=== PATIENT | male | born 1950 | race Caucasian/White ===

== ENCOUNTER → 2017-12-21 14:48 | Outpatient (CLI) | payer MEDICARE, SELFPAY ==
--- NOTE | 2017-12-21 14:58 | XR_ITS ---
XR chest 2V HISTORY: ITS.REASON: SOB ORDERING PHYSICIAN: Eduardo Edouard MD PATIENT AGE: 67 years COMPARISON: 05/11/2017 FINDINGS: Unremarkable cardiovascular structures. Chronic changes are present with COPD with chronic coarsening of the bronchovascular markings and blunting of the right CP angle. Prominent interstitial markings are present in the lung bases as before. No lobar consolidation or collapse. No acute bony anomalies. IMPRESSION: COPD with chronic changes with small right effusion unchanged
[2017-12-21 15:29] LABS: Basophils # 0.1 K/mm3 (0-0.2); Basophils % 0.9 % (0.1-2.0); Eosinophils # 0.1 K/mm3 (0.0-0.4); Eosinophils % 2.3 % (0.1-12.0); Hematocrit 28.5 % (42.0-52.0); Hemoglobin 9.1 g/dL (14.1-18.0); Lymphocytes # 1.2 K/mm3 (0.7-4.5); Lymphocytes % 19.4 K/mm3 (10-50); Mean Corpuscular Hemoglobin 28.7 pg (27.0-31.2); Mean Corpuscular Volume 89.8 fl (80-94); Mean Platelet Volume 7.6 fl (7.4-10.4); Monocytes # 0.4 K/mm3 (0.1-1.0); Neutrophils # 4.3 K/mm3 (1.8-7.8); Neutrophils % 70.4 % (37.0-80.0); Platelet Count 319 K/mm3 (142-424); Red Blood Count 3.18 M/mm3 (4.60-6.20); Red Cell Distribution Width 14.5 % (11.5-17.5); White Blood Count 6.2 K/mm3 (4.8-10.8)
[2017-12-21 16:36] LABS: Alanine Aminotransferase 19 U/L (12-78); Albumin Level 3.2 gm/dL (3.4-5.0); Alkaline Phosphatase 129 U/L (46-116); Anion Gap 14.2 mEq/L (5-15); Aspartate Amino Transferase 22 U/L (15-37); Bilirubin,Direct 0.1 mg/dL (0.0-0.2); Bilirubin,Total 0.3 mg/dL (0.2-1.0); Blood Urea Nitrogen 59 mg/dL (7-18); Carbon Dioxide 25 mmol/L (21.0-32.0); Chloride 111 mmol/L (98-107); Creatinine,Serum 3.15 mg/dL (0.70-1.30); Estimated Glomerular Filt Rate 20 ml/min (>60); Free T4 (Free Thyroxine) 1.22 ng/dl (0.76-1.46); GFR (African American) 24 ML/MIN (>60); Glucose 104 mg/dL (74-106); Potassium 5.2 mmoL/L (3.5-5.1); Sodium 145 mmol/L (136-145); Thyroid Stimulating Hormone 0.65 uIU/ml (0.358-3.740); Total Protein,Serum 6.5 gm/dL (6.4-8.2)
== END ==
PROVIDERS: PCP Family Medicine; Visit Provider Internal Medicine
DX: Z01.810 Encounter for preprocedural cardiovascular examination (principal); R06.02 Shortness of breath; R94.31 Abnormal electrocardiogram [ECG] [EKG]; J44.9 Chronic obstructive pulmonary disease, unspecified; R53.83 Other fatigue; N18.4 Chronic kidney disease, stage 4 (severe); E78.4 Other hyperlipidemia
CPT/HCPCS: 36415; 71046; 80048; 80076; 84439; 84443; 85025

== ENCOUNTER → 2018-01-04 06:16 | Outpatient (CLI) | payer MEDICARE, SELFPAY ==
--- NOTE | 2018-01-04 06:21 | CA_ITS ---
PROCEDURE: 2-D M-mode and color Doppler study INDICATIONS FOR THE TEST: Chest pain COPD Heart Murmur Tobacco SmokingX Palpitations Fatigue Syncope Edema HypertensionXDiabetes MellitusX Rheumatic Fever SOBXXDOEXObesity HyperlipidemiaX Family History HD Additional History ABN EKG,PRE-OP PATIENT INFORMATION HEIGHT: 70 WEIGHT:181 GENDER: Male B/P:156/73 2-D/M-MODE INTERPRETATION: 2-D MEASUREMENTS OBSERVED VALUES IN CMS Right Ventricular Dimension (RVDd) 2.4 Interventricular Septum (Thickness)(IVsd) 1.8 Left Ventricular Internal Dimensions(LVIDd) 4.2 Left Ventricular Posterior Wall (Thickness)(LVPWd) 1.3 Aortic Root 3.5 Aortic Cusp Separation 2.1 Left Atrial Dimensions (LAD) 3.4 2D 1. Left atrium is mildly enlarged, left ventricle is normal size, mild concentric left ventricular hypertrophy, visually estimated ejection fraction 55% with no obvious regional wall motion abnormality. 2. The right atrium and right ventricle are normal size and contractility. 3. The aortic valve is minimally thickened and fibrosed. 4. The mitral and tricuspid valve leaflets are minimally thickened. 5. The pulmonic valve is poorly visualized. 6. No significant pericardial effusion noted. DOPPLER INTERROGATION: Doppler interrogation of the aortic, mitral and tricuspid valvular presence of mild mitral and tricuspid regurgitation, tricuspid and jet velocity insufficient for acquisition of the right ventricular systolic pressure, grade 1 diastolic dysfunction seen with tissue Doppler evidence of raised left atrial pressure. CONCLUSION: 1. Mildly enlarged left atrium, normal left ventricular size, mild concentric left ventricular hypertrophy, visually estimated ejection fraction 55% with no obvious regional wall motion abnormality, grade 1 diastolic dysfunction seen with tissue Doppler evidence of raised left atrial pressure. 2. Mild mitral and tricuspid regurgitation. 3. No significant pericardial effusion noted.
--- NOTE | 2018-01-04 06:21 | US_ITS ---
US abd. aorta screening HISTORY: Screening for aneurysm ITS.REASON: abd pain ORDERING PHYSICIAN: Eduardo Edouard MD PATIENT AGE: 67 years FINDINGS: The aorta measures 1.9 x 1.7 cm at the level of the site for 1.9 x 1.3 cm 2 segments below the xiphoid and 1.7 x 1.6 cm at the level the umbilicus. Proximal common iliacs are unremarkable. IMPRESSION: No evidence of abdominal aortic aneurysm
--- NOTE | 2018-01-04 06:21 | NM_ITS ---
History and Indications: Diabetes, tobacco use, family history, chest pain, shortness of breath and fatigue Procedure: Patient received a 0.4 mg of Lexiscan, resting heart rate was 64 bpm resting blood pressure 204/100, with Lexiscan maximum heart rate achieved was 69 bpm which is less than 85% of the maximum predicted heart rate and a blood pressure was 134/61. With Lexiscan no symptoms recorded. Electrocardiogram: Resting electrocardiogram showed sinus rhythm nonspecific ST-T changes, with Lexiscan there is less than 1.[address] segment depression from the baseline EKG. The EKG portion of the Lexiscan Myoview is nondiagnostic. Cardiac stress and resting SPECT images: Cardiac stress and rest SPECT images were obtained using technetium 99 Myoview 30.8 mCi at stress and 10.9 mCi at rest, gated SPECT further analysis of segmental wall motion and calculation of the ejection fraction also done. Cardiac stress and rest SPECT images show a fixed defect in the wall consistent with area of myocardial scarring, no significant luis miguel-infarct ischemia seen, computer derived ejection fraction mild inferior and posterobasal wall hypokinesis, right ventricle is normal size and contractility. Conclusion: 1. The EKG portion of the Lexiscan Myoview is nondiagnostic. 2. Scintigraphic evidence of prior myocardial scarring involving the inferior and posterobasal wall without significant luis miguel-infarct ischemia, computer derived ejection is 42 %f percent with segmental wall motion abnormality described above, right ventricle is normal size and contractility. 3. Abnormal Lexiscan Myoview study
--- NOTE | 2018-01-04 10:33 | HMH.ITSHM ---
lisinopril clopidogrel amlodipine atorvastatin levothyroxine pantoprazole
== END ==
PROVIDERS: Family Provider Family Medicine; PCP Family Medicine; Visit Provider Internal Medicine
DX: R06.02 Shortness of breath (principal); R94.31 Abnormal electrocardiogram [ECG] [EKG]
CPT/HCPCS: 76705; 78452; 93017; 93306; A9502; J2785

== ENCOUNTER → 2018-02-06 10:25 | Outpatient (CLI) | payer MEDICARE, SELFPAY ==
[2018-02-06 10:43] LABS: Basophils # 0.1 K/mm3 (0-0.2); Basophils % 1.1 % (0.1-2.0); Eosinophils # 0.4 K/mm3 (0.0-0.4); Eosinophils % 5.8 % (0.1-12.0); Hematocrit 27.8 % (42.0-52.0); Hemoglobin 8.4 g/dL (14.1-18.0); Lymphocytes # 1.3 K/mm3 (0.7-4.5); Lymphocytes % 17.7 K/mm3 (10-50); Mean Corpuscular HGB Conc 30.3 g/dL (31.8-35.4); Mean Corpuscular Hemoglobin 27.4 pg (27.0-31.2); Mean Corpuscular Volume 90.5 fl (80-94); Mean Platelet Volume 8.4 fl (7.4-10.4); Monocytes # 0.5 K/mm3 (0.1-1.0); Monocytes % 6.2 % (1.7-9.3); Neutrophils # 5.1 K/mm3 (1.8-7.8); Neutrophils % 69.2 % (37.0-80.0); Platelet Count 379 K/mm3 (142-424); Red Blood Count 3.07 M/mm3 (4.60-6.20); Red Cell Distribution Width 14.6 % (11.5-17.5); White Blood Count 7.3 K/mm3 (4.8-10.8)
[2018-02-06 11:27] LABS: Anion Gap 16.5 mEq/L (5-15); Blood Urea Nitrogen 74 mg/dL (7-18); Calcium 8.8 mg/dL (8.5-10.1); Carbon Dioxide 24 mmol/L (21.0-32.0); Chloride 112 mmol/L (98-107); Estimated Glomerular Filt Rate 17 ml/min (>60); GFR (African American) 21 ML/MIN (>60); Glucose 78 mg/dL (74-106); Sodium 146 mmol/L (136-145)
[2018-02-06 11:29] LABS: Potassium 6.5 mmoL/L (3.5-5.1)
== END ==
PROVIDERS: Visit Provider Internal Medicine
DX: I25.10 Atherosclerotic heart disease of native coronary artery without angina pectoris (principal); I65.23 Occlusion and stenosis of bilateral carotid arteries; N18.4 Chronic kidney disease, stage 4 (severe); E78.5 Hyperlipidemia, unspecified; E11.9 Type 2 diabetes mellitus without complications
CPT/HCPCS: 36415; 80048; 85025

== ENCOUNTER → 2018-02-09 08:17 | Outpatient (CLI) | payer MEDICARE, SELFPAY ==
[2018-02-09 09:02] LABS: Basophils # 0.1 K/mm3 (0-0.2); Basophils % 1.1 % (0.1-2.0); Eosinophils # 0.5 K/mm3 (0.0-0.4); Eosinophils % 7.6 % (0.1-12.0); Hematocrit 27.4 % (42.0-52.0); Hemoglobin 8.6 g/dL (14.1-18.0); Lymphocytes # 1.2 K/mm3 (0.7-4.5); Lymphocytes % 19.4 K/mm3 (10-50); Mean Corpuscular HGB Conc 31.3 g/dL (31.8-35.4); Mean Corpuscular Hemoglobin 28.3 pg (27.0-31.2); Mean Corpuscular Volume 90.4 fl (80-94); Mean Platelet Volume 7.8 fl (7.4-10.4); Monocytes # 0.4 K/mm3 (0.1-1.0); Monocytes % 6.4 % (1.7-9.3); Neutrophils # 4.2 K/mm3 (1.8-7.8); Neutrophils % 65.4 % (37.0-80.0); Platelet Count 364 K/mm3 (142-424); Red Blood Count 3.03 M/mm3 (4.60-6.20); Red Cell Distribution Width 14.5 % (11.5-17.5); White Blood Count 6.4 K/mm3 (4.8-10.8)
[2018-02-09 10:13] LABS: Blood Urea Nitrogen 65 mg/dL (7-18); Calcium 8.6 mg/dL (8.5-10.1); Carbon Dioxide 25 mmol/L (21.0-32.0); Chloride 113 mmol/L (98-107); Estimated Glomerular Filt Rate 16 ml/min (>60); GFR (African American) 19 ML/MIN (>60); Glucose 76 mg/dL (74-106); Sodium 149 mmol/L (136-145)
[2018-02-09 10:16] LABS: Creatinine,Serum 3.86 mg/dL (0.70-1.30)
== END ==
PROVIDERS: Visit Provider Internal Medicine
DX: I25.10 Atherosclerotic heart disease of native coronary artery without angina pectoris (principal); I65.23 Occlusion and stenosis of bilateral carotid arteries; N18.4 Chronic kidney disease, stage 4 (severe)
CPT/HCPCS: 36415; 80048; 85025

== ENCOUNTER → 2018-02-23 09:19 | Outpatient (CLI) | payer MEDICARE, SELFPAY ==
[2018-02-23 09:46] LABS: Basophils # 0.1 K/mm3 (0-0.2); Basophils % 0.5 % (0.1-2.0); Eosinophils # 0.2 K/mm3 (0.0-0.4); Hematocrit 25.5 % (42.0-52.0); Lymphocytes % 9.4 K/mm3 (10-50); Mean Corpuscular HGB Conc 31.1 g/dL (31.8-35.4); Mean Corpuscular Hemoglobin 27.9 pg (27.0-31.2); Mean Corpuscular Volume 89.9 fl (80-94); Monocytes # 0.5 K/mm3 (0.1-1.0); Monocytes % 4.9 % (1.7-9.3); Neutrophils # 8.7 K/mm3 (1.8-7.8); Neutrophils % 83.3 % (37.0-80.0); Platelet Count 361 K/mm3 (142-424); Red Blood Count 2.84 M/mm3 (4.60-6.20); Red Cell Distribution Width 14.3 % (11.5-17.5); White Blood Count 10.5 K/mm3 (4.8-10.8)
[2018-02-23 09:54] LABS: Hemoglobin 7.9 g/dL (14.1-18.0)
[2018-02-23 10:32] LABS: Anion Gap 14.7 mEq/L (5-15); Blood Urea Nitrogen 61 mg/dL (7-18); Calcium 8.1 mg/dL (8.5-10.1); Carbon Dioxide 23 mmol/L (21.0-32.0); Chloride 110 mmol/L (98-107); Estimated Glomerular Filt Rate 18 ml/min (>60); GFR (African American) 22 ML/MIN (>60); Glucose 121 mg/dL (74-106); Potassium 4.7 mmoL/L (3.5-5.1); Sodium 143 mmol/L (136-145)
== END ==
PROVIDERS: Visit Provider Physician Assistant
DX: R53.83 Other fatigue (principal); N18.4 Chronic kidney disease, stage 4 (severe)
CPT/HCPCS: 36415; 80048; 85025

== ENCOUNTER → 2018-02-26 13:19 | Outpatient (CLI) | payer MEDICARE, SELFPAY ==
[2018-02-26 13:43] VITALS: BMI 27.3
[2018-02-26 14:19] LABS: Hematocrit 25.1 % (42.0-52.0); Hemoglobin 7.7 g/dL (14.1-18.0)
== END ==
PROVIDERS: Family Provider Family Medicine; PCP Family Medicine; Visit Provider Family Medicine
DX: D64.9 Anemia, unspecified (principal)
CPT/HCPCS: 36415; 85014; 85018; 86850

== ENCOUNTER 2018-02-27 09:30 | Outpatient (CLI) | payer MEDICARE, SELFPAY ==
[2018-02-27] VITALS (20 sets, daily range): BP systolic 144–185; BP diastolic 68–85; PULSE 66–76; RESP 18–20; TEMP 36.3–36.9; O2SAT 95–98; BMI 24.3
[2018-02-27 15:34] LABS: Hematocrit 30.7 % (42.0-52.0); Hemoglobin 9.9 g/dL (14.1-18.0)
== END 2018-02-27 15:30 | disposition home or self-care (01) ==
LOC: INF 09:43
PROVIDERS: Family Provider Family Medicine; PCP Family Medicine; Visit Provider Family Medicine
DX: D64.9 Anemia, unspecified (principal)
CPT/HCPCS: 36430; 85014; 85018; P9016

== ENCOUNTER → 2018-03-09 09:58 | Outpatient (CLI) | payer MEDICARE, SELFPAY ==
[2018-03-09 11:04] LABS: Anion Gap 14.3 mEq/L (5-15); Blood Urea Nitrogen 57 mg/dL (7-18); Calcium 8.4 mg/dL (8.5-10.1); Carbon Dioxide 23 mmol/L (21.0-32.0); Chloride 113 mmol/L (98-107); Creatinine,Serum 3.16 mg/dL (0.70-1.30); Estimated Glomerular Filt Rate 20 ml/min (>60); GFR (African American) 24 ML/MIN (>60); Glucose 126 mg/dL (74-106); Potassium 5.3 mmoL/L (3.5-5.1); Sodium 145 mmol/L (136-145)
== END ==
PROVIDERS: Family Provider Family Medicine; PCP Family Medicine; Visit Provider Internal Medicine Cardiovascular Disease
DX: N18.4 Chronic kidney disease, stage 4 (severe) (principal); E78.4 Other hyperlipidemia; E11.9 Type 2 diabetes mellitus without complications
CPT/HCPCS: 36415; 80048

== ENCOUNTER → 2018-05-24 09:31 | Outpatient (CLI) | payer MEDICARE, SELFPAY ==
[2018-05-24 09:37] LABS: Microscopic, Urine URINE MICROSCOPIC (MICROSCOPIC)
[2018-05-24 10:01] LABS: Basophils # 0.1 K/mm3 (0-0.2); Basophils % 1.1 % (0.1-2.0); Eosinophils # 0.3 K/mm3 (0.0-0.4); Eosinophils % 4.9 % (0.1-12.0); Hematocrit 29.5 % (42.0-52.0); Hemoglobin 9.3 g/dL (14.1-18.0); Lymphocytes # 1.4 K/mm3 (0.7-4.5); Mean Corpuscular HGB Conc 31.5 g/dL (31.8-35.4); Mean Corpuscular Hemoglobin 28.4 pg (27.0-31.2); Mean Corpuscular Volume 90.2 fl (80-94); Mean Platelet Volume 7.6 fl (7.4-10.4); Monocytes # 0.5 K/mm3 (0.1-1.0); Monocytes % 7.6 % (1.7-9.3); Neutrophils % 64.3 % (37.0-80.0); Platelet Count 303 K/mm3 (142-424); Red Blood Count 3.27 M/mm3 (4.60-6.20); Red Cell Distribution Width 14.9 % (11.5-17.5); White Blood Count 6.2 K/mm3 (4.8-10.8)
[2018-05-24 12:02] LABS: Albumin Level 3.4 gm/dL (3.4-5.0); Anion Gap 14.2 mEq/L (5-15); Blood Urea Nitrogen 55 mg/dL (7-18); Calcium 8.6 mg/dL (8.5-10.1); Carbon Dioxide 24 mmol/L (21.0-32.0); Chloride 111 mmol/L (98-107); Creatinine,Serum 3.07 mg/dL (0.70-1.30); Estimated Glomerular Filt Rate 20 ml/min (>60); GFR (African American) 24 ML/MIN (>60); Glucose 96 mg/dL (74-106); Phosphorous 4.9 mg/dL (2.4-4.9); Potassium 5.2 mmoL/L (3.5-5.1); Sodium 144 mmol/L (136-145)
[2018-05-24 12:25] LABS: Appearance,Urine CLEAR (Clear); Bilirubin,Urine Negative (Negative); Blood, Urine Negative (Negative); Color,Urine YELLOW (Yellow); Glucose,Urine (UA) Negative (Negative); Ketones,Urine Negative (Negative); Leukocyte Esterase,Urine Negative (Negative); Nitrate,Urine Negative (Negative); PH,Urine 5.5 (5.0-8.5); Protein,Urine 3+ (Negative); Specific Gravity, Urine >= 1.030 (1.005-1.030); Urobilinogen,Urine 0.2 EU/dl (0.2)
[2018-05-24 12:39] LABS: Bacteria,Urine 1+ /lpf; WBC,Urine Occasional #/hpf (0-3)
[2018-05-24 12:53] LABS: Creatinine,Urine Random 139 mg/dL (20-320)
[2018-05-24 13:37] LABS: Total Protein,Urine Random 278.7 mg/dL (0.0-11.9)
== END ==
PROVIDERS: PCP Family Medicine; Visit Provider Hospitalist
DX: N18.9 Chronic kidney disease, unspecified (principal)
CPT/HCPCS: 36415; 80069; 81001; 82570; 84155; 85025

== ENCOUNTER → 2018-06-14 07:57 | Outpatient (CLI) | payer MEDICARE, SELFPAY ==
--- NOTE | 2018-06-14 08:04 | AS_ITS ---
Renal Arterial Duplex Indications: 405.91 Unspecified renovascular hypertension. IMPRESSIONS 1. The right renal artery appears normal. 2. The left renal artery appears normal. 3. Mildly elevated velocities noted at the left renal artery proximal and origin portions due to a tortuous vessel. Complete renal arterial duplex. Duplex scan and Doppler flow study including spectral analysis, color and ulrich scale imaging. Height: Height: 177.8cm. Height: 70in. Weight: Weight: 77.1kg. Weight: 169.6lb. Body mass index: BMI: 24.4kg/m^2. Body surface area: BSA: 1.96m^2. Location: Vascular laboratory. Patient status: Outpatient. Tables: Arterial flow: + +-------+--------+ Location V sys V ed + +-------+--------+ Right renal - proximal 120cm/s 20.1cm/s + +-------+--------+ Right renal - mid 115cm/s 26.2cm/s + +-------+--------+ Right renal - distal 218cm/s 25.7cm/s + +-------+--------+ Left renal - proximal 205cm/s 31cm/s + +-------+--------+ Left renal - mid 105cm/s 21.2cm/s + +-------+--------+ Left renal - distal 100cm/s 20.1cm/s + +-------+--------+ Right renal - Origin 109cm/s 18cm/s + +-------+--------+ Left renal - Origin 167cm/s 30cm/s + +-------+--------+ Aorta 108cm/s -------- + +-------+--------+ Artery mapping: + +--------+-------+ + Location Diameter Patency Observations + +--------+-------+ + Abdominal aorta - mid 1.84mm Patent Calcification + +--------+-------+ + Renal anatomy: + +-----+-----+ Left Right + +-----+-----+ Long axis 8.4cm 8.5cm + +-----+-----+ Short axis 5.7cm 5.5cm + +-----+-----+ Velocity ratios: + +-----+ V sys + +-----+ Right renal/aortic 2 + +-----+ Left renal/aortic 1.9 + +-----+ (Report amended ) Electronically signed by: Julius He [id number]
--- NOTE | 2018-06-14 08:30 | US_ITS ---
US kidney retroperitoneal comp HISTORY: Chronic renal disease ITS.REASON: CKD ORDERING PHYSICIAN: Byron Angulo PATIENT AGE: 68 years Comparison: None FINDINGS: The right kidney is 9.5 x 5.5 x 6.5 cm. No hydronephrosis or renal mass. Cortex is well-preserved. The left kidney is 9 point by 6.2 x 5.6 cm no hydronephrosis. Renal cortex is preserved. IMPRESSION: Negative bilateral renal ultrasound
== END ==
PROVIDERS: Family Provider Family Medicine; PCP Family Medicine
DX: N18.4 Chronic kidney disease, stage 4 (severe) (principal)
CPT/HCPCS: 76770; 93976

== ENCOUNTER → 2018-06-22 11:30 | Outpatient (CLI) | payer MEDICARE, SELFPAY ==
[2018-06-22 13:14] LABS: Creatinine,Urine Random 67 mg/dL (20-320); Total Protein,Urine Random 225.5 mg/dL (0.0-11.9)
[2018-06-22 14:01] LABS: Albumin Level 3.7 gm/dL (3.4-5.0); Blood Urea Nitrogen 50 mg/dL (7-18); Calcium 8.6 mg/dL (8.5-10.1); Carbon Dioxide 24 mmol/L (21.0-32.0); Chloride 108 mmol/L (98-107); Creatinine,Serum 3.02 mg/dL (0.70-1.30); Estimated Glomerular Filt Rate 21 ml/min (>60); Ferritin 55 ng/mL (8-388); GFR (African American) 25 ML/MIN (>60); Glucose 105 mg/dL (74-106); Phosphorous 4.4 mg/dL (2.4-4.9); Sodium 143 mmol/L (136-145)
[2018-06-22 14:38] LABS: Basophils # 0.1 K/mm3 (0-0.2); Basophils % 1.1 % (0.1-2.0); Eosinophils # 0.2 K/mm3 (0.0-0.4); Eosinophils % 3.8 % (0.1-12.0); Hematocrit 26.3 % (42.0-52.0); Lymphocytes # 1.1 K/mm3 (0.7-4.5); Lymphocytes % 16.9 K/mm3 (10-50); Mean Corpuscular HGB Conc 34.3 g/dL (31.8-35.4); Mean Corpuscular Hemoglobin 30.6 pg (27.0-31.2); Mean Platelet Volume 7.5 fl (7.4-10.4); Monocytes # 0.3 K/mm3 (0.1-1.0); Monocytes % 5.1 % (1.7-9.3); Neutrophils # 4.7 K/mm3 (1.8-7.8); Platelet Count 352 K/mm3 (142-424); Red Blood Count 2.96 M/mm3 (4.60-6.20); White Blood Count 6.4 K/mm3 (4.8-10.8)
[2018-06-23 09:15] LABS: Iron 65 ug/dL (38-169); UIBC 247 ug/dL (111-343)
[2018-06-24 09:27] LABS: Iron Saturation 21 % (15-55)
[2018-06-24 09:28] LABS: Parathyroid Hormone Intact 165 pg/mL (15-65); Vitamin D 25 Hydroxy 24.4 ng/mL (30.0-100.0)
[2018-06-25 15:19] LABS: Anti-Centromere B Antibodies <0.2 AI (0.0-0.9); Anti-Jo-1 <0.2 AI (0.0-0.9); Anti-Smith Antibody 0.3 AI (0.0-0.9); Antichromatin Antibodies <0.2 AI (0.0-0.9); Antiscleroderma-70 Antibodies 0.5 AI (0.0-0.9); Cytoplasmic (C-ANCA) <1:20 titer (Neg:<1:20); Immunoglobulin A, Qn 71 mg/dL (61-437); Immunoglobulin G, Qn 1032 mg/dL (700-1600); Immunoglobulin M, Qn 174 mg/dL (20-172); RNP Antibodies <0.2 AI (0.0-0.9); Sjogren's Anti-SS-A <0.2 AI (0.0-0.9); Sjogren's Anti-SS-B <0.2 AI (0.0-0.9)
[2018-06-26 06:30] LABS: Anti-DNA (DS) Ab Qn 1 IU/mL (0-9); Myeloperoxidase Antibody <9.0 U/mL (0.0-9.0); Perinuclear (P-ANCA) <1:20 titer (Neg:<1:20)
[2018-06-27 14:39] LABS: Antiproteinase 3 (PR-3) Abs <3.5 U/mL (0.0-3.5)
== END ==
PROVIDERS: PCP Family Medicine
DX: N18.4 Chronic kidney disease, stage 4 (severe) (principal); D63.8 Anemia in other chronic diseases classified elsewhere
CPT/HCPCS: 36415; 80069; 82570; 82652; 82728; 82784; 83520; 83540; 83550; 83970; 84155; 85025; 86225; 86235; 86256; 86334; 86335

== ENCOUNTER → 2018-07-26 13:11 | Outpatient (CLI) | payer MEDICARE, SELFPAY ==
[2018-07-27 15:19] LABS: Free Lambda Lt Chains 44.6 mg/L (5.7-26.3)
== END ==
PROVIDERS: Visit Provider Internal Medicine Medical Oncology
DX: R76.8 Other specified abnormal immunological findings in serum (principal)
CPT/HCPCS: 36415; 83883

== ENCOUNTER → 2018-09-28 10:02 | Outpatient (CLI) | payer MEDICARE, SELFPAY ==
[2018-09-28 11:05] LABS: Anion Gap 20.1 mEq/L (5-15); Blood Urea Nitrogen 55 mg/dL (7-18); Calcium 8.5 mg/dL (8.5-10.1); Carbon Dioxide 18 mmol/L (21.0-32.0); Chloride 112 mmol/L (98-107); Estimated Glomerular Filt Rate 17 ml/min (>60); GFR (African American) 20 ML/MIN (>60); Glucose 134 mg/dL (74-106); Potassium 5.1 mmoL/L (3.5-5.1); Sodium 145 mmol/L (136-145)
[2018-09-28 11:12] LABS: Creatinine,Serum 3.62 mg/dL (0.70-1.30)
== END ==
PROVIDERS: Visit Provider Internal Medicine Cardiovascular Disease
DX: I45.10 Unspecified right bundle-branch block; D64.9 Anemia, unspecified; E03.9 Hypothyroidism, unspecified; E11.9 Type 2 diabetes mellitus without complications; E78.5 Hyperlipidemia, unspecified; G45.9 Transient cerebral ischemic attack, unspecified; I25.10 Atherosclerotic heart disease of native coronary artery without angina pectoris; J44.9 Chronic obstructive pulmonary disease, unspecified; K21.9 Gastro-esophageal reflux disease without esophagitis; N18.4 Chronic kidney disease, stage 4 (severe); R06.02 Shortness of breath; R53.83 Other fatigue; Z79.4 Long term (current) use of insulin; F17.210 Nicotine dependence, cigarettes, uncomplicated
CPT/HCPCS: 36415; 80048

== ENCOUNTER → 2018-10-05 11:56 | Outpatient (CLI) | payer MEDICARE, SELFPAY ==
[2018-10-05 12:16] LABS: Basophils # 0.1 K/mm3 (0-0.2); Basophils % 1.3 % (0.1-2.0); Eosinophils # 0.2 K/mm3 (0.0-0.4); Eosinophils % 3.8 % (0.1-12.0); Lymphocytes # 0.8 K/mm3 (0.7-4.5); Lymphocytes % 13.2 % (10-50); Mean Corpuscular HGB Conc 30.9 g/dL (31.8-35.4); Mean Corpuscular Hemoglobin 28.8 pg (27.0-31.2); Mean Corpuscular Volume 93.2 fl (80-94); Mean Platelet Volume 8.2 fl (7.4-10.4); Monocytes # 0.3 K/mm3 (0.1-1.0); Monocytes % 4.6 % (1.7-9.3); Neutrophils # 4.7 K/mm3 (1.8-7.8); Neutrophils % 77.1 % (37.0-80.0); Platelet Count 357 K/mm3 (142-424); Red Blood Count 2.53 M/mm3 (4.60-6.20); Red Cell Distribution Width 14.5 % (11.5-17.5); White Blood Count 6.1 K/mm3 (4.8-10.8)
[2018-10-05 12:18] LABS: Hematocrit 23.6 % (42.0-52.0)
[2018-10-05 12:21] LABS: Hemoglobin 7.3 g/dL (14.1-18.0)
[2018-10-05 13:47] LABS: Anion Gap 18.3 mEq/L (5-15); Blood Urea Nitrogen 63 mg/dL (7-18); Carbon Dioxide 21 mmol/L (21.0-32.0); Chloride 109 mmol/L (98-107); Estimated Glomerular Filt Rate 16 ml/min (>60); GFR (African American) 20 ML/MIN (>60); Glucose 279 mg/dL (74-106); Potassium 5.3 mmoL/L (3.5-5.1); Sodium 143 mmol/L (136-145)
[2018-10-05 14:53] LABS: Creatinine,Serum 3.72 mg/dL (0.70-1.30)
== END ==
PROVIDERS: Visit Provider Internal Medicine Cardiovascular Disease
DX: E11.9 Type 2 diabetes mellitus without complications (principal); E78.5 Hyperlipidemia, unspecified; I25.10 Atherosclerotic heart disease of native coronary artery without angina pectoris; I45.10 Unspecified right bundle-branch block; I65.29 Occlusion and stenosis of unspecified carotid artery; J44.9 Chronic obstructive pulmonary disease, unspecified; N18.4 Chronic kidney disease, stage 4 (severe); R06.00 Dyspnea, unspecified
CPT/HCPCS: 36415; 80048; 85025

== ENCOUNTER → 2018-10-06 08:57 | Outpatient (CLI) | payer MEDICARE, SELFPAY ==
[2018-10-06] VITALS (18 sets, daily range): BP systolic 156–197; BP diastolic 78–101; PULSE 63–70; RESP 16–18; TEMP 36.4–36.6; O2SAT 97–99; BMI 24.3
--- NOTE | 2018-10-06 12:04 | PC.NURSE ---
Spoke with Dr. Albarado related to patient's elevated BP and headache. States to give Tylenol 650mg po x 1 dose now and Amlodipine 5mg po x 1 dose now. Continue with Blood infusion.
--- NOTE | 2018-10-06 13:11 | PC.NURSE ---
Notified Dr. Albarado related to patient's blood pressure manually 202/89. No new orders at this time. First unit of blood completed.
[2018-10-06 16:53] LABS: Hematocrit 27.9 % (42.0-52.0); Hemoglobin 8.9 g/dL (14.1-18.0)
== END ==
PROVIDERS: PCP Family Medicine; Visit Provider Family Medicine
DX: D64.9 Anemia, unspecified (principal)
CPT/HCPCS: 36415; 36430; 85014; 85018; 86850; P9016

== ENCOUNTER → 2018-10-19 12:04 | Outpatient (CLI) | payer MEDICARE, SELFPAY ==
[2018-10-19 12:42] LABS: Basophils # 0.1 K/mm3 (0-0.2); Basophils % 1.2 % (0.1-2.0); Eosinophils # 0.4 K/mm3 (0.0-0.4); Eosinophils % 6.1 % (0.1-12.0); Hematocrit 28.1 % (42.0-52.0); Hemoglobin 8.9 g/dL (14.1-18.0); Lymphocytes # 0.9 K/mm3 (0.7-4.5); Lymphocytes % 15.2 % (10-50); Mean Corpuscular HGB Conc 31.7 g/dL (31.8-35.4); Mean Corpuscular Hemoglobin 28.8 pg (27.0-31.2); Mean Corpuscular Volume 90.9 fl (80-94); Mean Platelet Volume 8.3 fl (7.4-10.4); Monocytes # 0.3 K/mm3 (0.1-1.0); Monocytes % 4.9 % (1.7-9.3); Neutrophils # 4.2 K/mm3 (1.8-7.8); Neutrophils % 72.6 % (37.0-80.0); Platelet Count 310 K/mm3 (142-424); Red Blood Count 3.09 M/mm3 (4.60-6.20); Red Cell Distribution Width 14.9 % (11.5-17.5); White Blood Count 5.8 K/mm3 (4.8-10.8)
[2018-10-19 12:42] LABS: Microscopic, Urine URINE MICROSCOPIC (MICROSCOPIC)
[2018-10-19 13:26] LABS: Creatinine,Urine Random 63 mg/dL (20-320); Total Protein,Urine Random 191.9 mg/dL (0.0-11.9)
[2018-10-19 13:32] LABS: Albumin Level 3.1 gm/dL (3.4-5.0); Anion Gap 18.2 mEq/L (5-15); Blood Urea Nitrogen 61 mg/dL (7-18); Calcium 8.2 mg/dL (8.5-10.1); Carbon Dioxide 21 mmol/L (21.0-32.0); Chloride 111 mmol/L (98-107); Estimated Glomerular Filt Rate 16 ml/min (>60); GFR (African American) 19 ML/MIN (>60); Glucose 109 mg/dL (74-106); Phosphorous 5.4 mg/dL (2.4-4.9); Potassium 5.2 mmoL/L (3.5-5.1); Sodium 145 mmol/L (136-145)
[2018-10-19 13:40] LABS: Creatinine,Serum 3.81 mg/dL (0.70-1.30)
[2018-10-19 15:26] LABS: Appearance,Urine CLEAR (Clear); Bilirubin,Urine Negative (Negative); Blood, Urine Negative (Negative); Color,Urine YELLOW (Yellow); Glucose,Urine (UA) Negative (Negative); Ketones,Urine Negative (Negative); Leukocyte Esterase,Urine Negative (Negative); Nitrate,Urine Negative (Negative); PH,Urine 5.5 (5.0-8.5); Protein,Urine 2+ (Negative); Urobilinogen,Urine 0.2 EU/dl (0.2)
[2018-10-19 16:03] LABS: Bacteria,Urine 1+ /lpf; Mucus,Urine Trace /lpf
== END ==
PROVIDERS: Visit Provider Internal Medicine Nephrology
DX: N18.4 Chronic kidney disease, stage 4 (severe) (principal); D63.1 Anemia in chronic kidney disease; R80.9 Proteinuria, unspecified
CPT/HCPCS: 36415; 80069; 81001; 82570; 84155; 85025

== ENCOUNTER 2018-12-07 03:19 | Inpatient (IN) ==
[2018-12-07 03:30] LABS: Basophils # 0.1 K/mm3 (0-0.2); Basophils % 0.8 % (0.1-2.0); Eosinophils # 0.3 K/mm3 (0.0-0.4); Eosinophils % 4.3 % (0.1-12.0); Lymphocytes # 1.2 K/mm3 (0.7-4.5); Lymphocytes % 19.7 % (10-50); Mean Corpuscular HGB Conc 31.2 g/dL (31.8-35.4); Mean Corpuscular Hemoglobin 28.5 pg (27.0-31.2); Mean Corpuscular Volume 91.2 fl (80-94); Mean Platelet Volume 7.6 fl (7.4-10.4); Monocytes # 0.4 K/mm3 (0.1-1.0); Monocytes % 6.4 % (1.7-9.3); Neutrophils # 4.2 K/mm3 (1.8-7.8); Neutrophils % 68.8 % (37.0-80.0); Platelet Count 374 K/mm3 (142-424); Red Blood Count 2.45 M/mm3 (4.60-6.20); Red Cell Distribution Width 16.4 % (11.5-17.5); White Blood Count 6.1 K/mm3 (4.8-10.8)
[2018-12-07 03:36] LABS: Hematocrit 22.3 % (42.0-52.0)
[2018-12-07 03:40] LABS: ABG Base Excess -9.6 mmol/L (-2.4-2.3); ABG HCO3 16.2 mmhg (22.0-26.0); ABG Oxygen Saturation 99 % (90-100); ABG PCO2 30.8 mmhg (35.0-45.0); ABG PH 7.34 mmol/L (7.35-7.45); ABG TCO2 17.2 mmhg (23-27)
[2018-12-07 03:43] LABS: Albumin Level 3.3 gm/dL (3.4-5.0); Albumin/Globulin Ratio 0.9 (1.1-1.8); Anion Gap 22.4 mEq/L (5-15); Bilirubin,Total 0.3 mg/dL (0.2-1.0); Globulin 3.8 gm/dl (1.3-3.2); Potassium 5.4 mmoL/L (3.5-5.1); Total Protein,Serum 7.1 gm/dL (6.4-8.2)
[2018-12-07 03:47] LABS: Allen's Test Acceptable
--- NOTE | 2018-12-07 03:50 | Emergency Department Note ---
ED Disposition Clinical Impression: Acute exacerbation of chronic obstructive airways disease, CKD (chronic kidney disease) stage 4, GFR 15-29 ml/min, Essential hypertension Community acquired pneumonia Qualifiers: Laterality: right Lung location: lower lobe of lung Qualified Code(s): J18.1 - Lobar pneumonia, unspecified organism Congestive heart failure Qualifiers: Heart failure type: unspecified Heart failure chronicity: acute on chronic Qualified Code(s): I50.9 - Heart failure, unspecified Anemia Qualifiers: Anemia type: unspecified type Qualified Code(s): D64.9 - Anemia, unspecified Disposition: Admitted as Observation Condition on Discharge: Fair Referrals: Provider,Referral, [Primary Care Provider] - - Critical Care Critical Care Time: No Attestation: On 12/07/18, the high probability of a clinically significant, sudden or life threatening deterioration of the following system(s) required my full and direct attention, intervention and personal management. The time I documented below is in addition to time spent performing reported procedures but includes the following listed in this critical care notation. Medical Decision Making - Medical Records Medical records reviewed: Yes: I reviewed the patient's medical records. - Ernesto Inquiry Pt receiving controlled substance: No Vital Signs: 12/07/18 03:25 12/07/18 03:53 12/07/18 04:29 Temperature 97.8 F 97.9 F Temperature Source Oral Oral Pulse Rate [Right] 82 76 Respiratory Rate 26 H 24 Blood Pressure [Right Arm] 206/98 H 177/83 H Blood Pressure Mean [Right Arm] 134 114 Blood Pressure Source [Right Arm] Automatic Cuff Automatic Cuff Blood Pressure Position [Right Arm] Sitting Sitting 02 Sat by Pulse Oximetry 91 L 94 L 95 Oxygen Delivery Method Room Air Nasal Cannula Nasal Cannula Oxygen Flow Rate (LPM) 3 3 - Lab Data Lab results reviewed: Yes: I reviewed the patient's lab results. Lab Results 12/07/18 03:21: WBC 6.1, RBC 2.45 L, Hgb 7.0 L*, Hct 22.3 L*, MCV 91.2, MCH 28.5, MCHC 31.2 L, RDW 16.4, Plt Count 374, MPV 7.6, Neut % (Auto) 68.8, Lymph % (Auto) 19.7, [place] % (Auto) 6.4, Eos % (Auto) 4.3, Baso % (Auto) 0.8, Neut # (Auto) 4.2, Lymph # (Auto) 1.2, [place] # (Auto) 0.4, Eos # (Auto) 0.3, Baso # (Auto) 0.1 12/07/18 03:21: Sodium 147 H, Potassium 5.4 H, Chloride 113 H, Carbon Dioxide 17 L, Anion Gap 22.4 H, BUN 63 H, Creatinine 3.85 H, Estimated Creat Clear 21, Estimated GFR 16 L*, Est GFR ( Amer) 19 L*, Glucose 166 H, Calcium 8.0 L, Total Bilirubin 0.3, AST 31, ALT 32, Alkaline Phosphatase 132 H, Troponin I 0.06, Total Protein 7.1, Albumin 3.3 L, Globulin 3.8 H, Albumin/Globulin Ratio 0.9 L 12/07/18 03:21: B-Natriuretic Peptide 2380 H 12/07/18 03:21: PT 10.6, INR 1.03, APTT 29.7 12/07/18 03:23: Specimen Source Right radial, O2 % 8 lpm, 52% nc, ABG pH 7.34 L, ABG pCO2 30.8 L, ABG pO2 146.0 H, ABG HCO3 16.2 L, ABG Total CO2 17.2 L, ABG O2 Saturation 99, ABG Base Excess -9.6 L, Julius Test Acceptable 12/07/18 04:00: Lactate 0.6 12/07/18 04:10: Blood Type O Positive, Crossmatch (AHG) See Detail 12/07/18 04:10: Ferritin 58 Result diagrams: 12/07/18 03:21 12/07/18 03:21 Orders (Tests/Meds): ED MEDICATIONS Generic Name Dose Route Start Last Admin Trade Name Freq PRN Reason Stop Dose Admin Ceftriaxone Sodium 1 gm/ 50 mls @ 100 mls/hr 12/07/18 04:00 12/07/18 03:58 Sodium Chloride IV 12/21/18 03:59 100 mls/hr Q24H MARGO Administration Protocol Azithromycin 500 mg/ Sodium 250 mls @ 250 mls/hr 12/07/18 04:00 12/07/18 04:06 Chloride IV 12/21/18 03:59 250 mls/hr Q24H MARGO Administration Protocol Sodium Chloride 250 mls @ 25 mls/hr 12/07/18 04:00 Sod Chlor 0.9% 250ml Bag IV 12/08/18 03:59 .Q10H MARGO Sodium Chloride 10 ml 12/07/18 03:24 Saline Flush 10ml Syringe IV 01/06/19 03:23 NEEDED PRN Maintain IV Site Sodium Chloride 3 ml 12/07/18 04:15 Sodium Chloride 3% 15ml Neb IH 01/06/19 04:14 ONCE PRN INDUCE SPUTUM COLLECTION Discontinued Medications Generic Name Dose Route Start Last Admin Trade Name Sunnyq PRN Reason Stop Dose Admin Furosemide 40 mg 12/07/18 04:20 12/07/18 04:30 Lasix 40mg/4ml Vial IV 12/07/18 04:21 40 mg ONCE ONE Administration ORDERS Category Date Time Status PRBC [Red Blood Cells] Stat BBK 12/07/18 04:10 Results Type and Screen Stat BBK 12/07/18 04:10 Results Iron and TIBC Routine Lab 12/07/18 04:10 Received Blood Culture Stat Micro 12/07/18 04:00 Received Sputum Culture & Gram Stain Stat Micro 12/07/18 04:15 Ordered - Radiology Data #1 Image(s): Chest Image Reviewed: Yes I reviewed the patient's radiology image Preliminary Findings: Abnormal (cap rt and chf) - ECG Data Tracing #1 Normal Sinus Rhythm: Yes Ischemic changes: non-specific ST-T wave changes - Physician Consults Physician Consulted: kirt Reason -: Admission Resp/SOB HPI - General Chief Complaint: Shortness of Breath/Dyspnea Stated Complaint: SOA Time Seen by Provider: 12/07/18 03:30 Mode of Arrival: EMS Source of Information: Patient, EMS, Medical Record Limitations: No Limitations Description of Symptoms (Recalled from ER Triage Doc. by RN): Pt states he has been SOA for 2 days, received 100mg Solu-Medrol and a Duo-neb in route by EMS - History of Present Illness progressive sob and prod cough over the last 2 days with no chest pain - he has hx of copd MD Complaint: shortness of breath, cough Onset (ago): day(s) Severity: severe Known history of: COPD, congestive heart failure Associated symptoms: cough Treatment prior to arrival: bronchodilator - Related Data Home oxygen amount: none Home Medications Medication Instructions Recorded Confirmed albuterol sulfate HFA 90 2 puff INHALATION Q4-6H PRN 12/18/17 12/07/18 mcg/actuation aerosol inhaler atorvastatin 40 mg tablet 40 mg PO DAILY tab 12/18/17 12/07/18 budesonide-formoterol HFA 160 2 puff INHALATION BID 12/18/17 12/07/18 mcg-4.5 mcg/actuation aerosol inhaler clopidogrel 75 mg tablet 75 mg PO DAILY tab 12/18/17 12/07/18 levothyroxine 88 mcg tablet 88 mcg PO DAILY tab 12/18/17 12/07/18 pantoprazole 40 mg tablet,delayed 40 mg PO QAM 12/18/17 12/07/18 release Aspirin 81 mg PO DAILY 01/24/18 12/07/18 Furosemide [Furosemide 40MG tAB] 40 mg PO .qod 12/07/18 12/07/18 Hydralazine HCl 75 mg PO TID 12/07/18 12/07/18 Insulin Glargine,Hum.rec.anlog 25 unit SQ HS 12/07/18 12/07/18 [Lantus Insulin 100units/mL 10mL vial] Isosorbide Mononitrate [Imdur 60mg 60 mg PO DAILY 12/07/18 12/07/18 ER tablet] Sertraline HCl [Zoloft 50mg tablet] 50 mg PO DAILY 12/07/18 12/07/18 Allergies Allergy/AdvReac Type Severity Reaction Status Date / Time strawberry Allergy Mild Unknown Verified 11/02/18 09:30 allergy reaction [facility] History - Hepatitis A Screen Drug use history?: No High risk sexual behaviors?: No History of sexually transmitted infection?: No Currently employed?: No Childcare worker?: No Do you have indoor plumbing?: Yes Do you have electricity?: Yes Attestation statement:: This patient has been screened for Hepatitis A risk factors. I have reviewed the patient's past medical history: Yes Medical History: Reports:: Chronic Obstructive Pulmonary Disease (COPD), Depression, Diabetes Mellitus Type 2, Hyperlipidemia, Lung Disease Denies:: Diabetes Mellitus Type 1, Home Oxygen, Internal Pacemaker, Seizures Other Medical History: Reports: Hypothyroidism Laterality Cases: Left: Arthroscopy Shoulder, Right: Carotid Endarterectomy Other Surgeries: Yes: Cardiac Catheterization, Coronary Stent. No: Pacemaker Amputation: No Fractures: No - Social History Smoking Status: Current every day smoker Tobacco Type: cigarettes # Packs/Day (cigarettes): 1 Alcohol Intake: never Alcohol Intake Frequency:: a few times a month Substance Use Type: denies use Occupational Status: retired Household Members: friend(s) - Psychiatric History Expresses thoughts of harming self/others: None Suicide Plan Description: No Plan Pschychiatric History:: Reports:: Depression Family Hx:: Kidney Disease, Diabetes Comment: Father - liver disease ROS Obtained: Yes All systems reviewed & no additional complaints - Constitutional Constitutional: Reports chills, Reports fever(s) - Eyes Eyes: Denies change in vision - ENT Ears, Nose, Mouth, and Throat: Denies sore throat - Cardiovascular Cardiovascular: Denies chest pain, Reports dyspnea - Respiratory Respiratory: Yes cough, Yes non-productive cough, No coughing up blood - Gastrointestinal Gastrointestingal: Denies: abdominal pain - Genitourinary Male Genitourinary: Denies hematuria - Musculoskeletal Musculoskeletal: Denies joint pain, Denies neck pain - Integumentary/Breasts Skin/Breast: Denies rash - Neurologic Neurologic: Denies seizure-like activity Physical Exam - General General appearance: in no apparent distress - Head Head exam: normocephalic - Eye Eye exam: Present: PERRL, EOMI. Absent: scleral icterus - ENT ENT exam: Present: mucous membranes dry - Neck Neck exam: Present: trachea midline - Respiratory Respiratory exam: Present: other (dec bs bilat ). Absent: respiratory distress - Cardiovascular Cardiovascular exam: Present: regular rate, systolic murmur, +S4 - Abdominal Exam Abdominal exam: Present: soft - Extremities Exam Extremities exam: Present: pedal edema. Absent: calf tenderness - Neurological Exam Neurological exam: Present: alert, oriented X3, CN II-XII intact - Psychiatric Psychiatric exam: Present: normal affect - Skin Skin exam: Absent: rash
[2018-12-07 04:26] LABS: Activated Partial Thrombo Time 29.7 seconds (23.6-34.0); INR 1.03 (0.9-1.1); Prothrombin Time 10.6 seconds (9.4-11.8)
--- NOTE | 2018-12-07 07:12 | History & Physical Report ---
*Admission Date: 12/07/18 *Chief complaint: Shortness of breath *History of present illness: 68-year-old male with history of coronary artery disease, COPD, stage IV chronic kidney disease, diabetes, anemia of chronic disease presented to the emergency department with progressive onset of shortness of breath. Patient states he could feel the shortness of breath developed approximately a week ago and his gradually worsened each day until the point where he felt like he needed to come to the emergency department overnight. Patient denies cough. Patient denies fevers and chills. In the emergency department he was found to be anemic with an elevated BNP. Patient was given an IV dose of Lasix which he reports he has had some response to. He is also being transfused packed red blood cells. This will be the third time in the last 6-7 months the patient has required blood transfusion [facility] History I have reviewed the patient's past medical history: Yes Medical History: Reports:: Congestive Heart Failure, Chronic Obstructive Pulmonary Disease (COPD), Depression, Diabetes Mellitus Type 2, Hyperlipidemia, Hypertension, Lung Disease, Myocardial Infarction Denies:: Cancer, Diabetes Mellitus Type 1, Home Oxygen, Internal Pacemaker, M RSA, Seizures *Have you ever received a pneumonia vaccine?: Yes *Have you received a flu vaccine this season?: Yes Other Medical History: Reports: Anemia, Arthritis, Cataracts, Hypothyroidism Comment:: Chronic kidney disease stage IV, anemia of chronic disease, carotid artery disease Laterality Cases: Left: Arthroscopy Shoulder, Right: Carotid Endarterectomy Other Surgeries: Yes: Cardiac Catheterization, Colonoscopy, Coronary Stent. 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 fungal infection - *Social History Educational Level: Attended High School Smoking Status: Former smoker Tobacco Type: cigarettes # Packs/Day (cigarettes): 1 Alcohol Intake: former Alcohol Intake Frequency:: a few times a month Substance Use Type: denies use *Occupational Status:: retired Household Members: friend(s) *Travel in the last 8 weeks: None - Psychiatric History Expresses thoughts of harming self/others: None Suicide Plan Description: No Plan Pschychiatric History:: Reports:: Depression Family Hx:: Kidney Disease, Diabetes Review of Systems - Review of Systems See HPI - *Neurologic Denies seizure-like activity Meds Home Medications Medication Instructions Recorded Confirmed Type albuterol sulfate HFA 90 2 puff INHALATION Q4-6H PRN 12/18/17 12/07/18 History mcg/actuation aerosol inhaler atorvastatin 40 mg tablet 40 mg PO DAILY tab 12/18/17 12/07/18 History budesonide-formoterol HFA 160 2 puff INHALATION BID 12/18/17 12/07/18 History mcg-4.5 mcg/actuation aerosol inhaler clopidogrel 75 mg tablet 75 mg PO DAILY tab 12/18/17 12/07/18 History levothyroxine 88 mcg tablet 88 mcg PO DAILY tab 12/18/17 12/07/18 History pantoprazole 40 mg tablet,delayed 40 mg PO QAM 12/18/17 12/07/18 History release Aspirin 81 mg PO DAILY 01/24/18 12/07/18 History Furosemide [Furosemide 40MG tAB] 40 mg PO .qod 12/07/18 12/07/18 History Hydralazine HCl 75 mg PO TID 12/07/18 12/07/18 History Insulin Glargine,Hum.rec.anlog 25 unit SQ HS 12/07/18 12/07/18 History [Lantus Insulin 100units/mL 10mL vial] Isosorbide Mononitrate [Imdur 60mg 60 mg PO DAILY 12/07/18 12/07/18 History ER tablet] Sertraline HCl [Zoloft 50mg tablet] 50 mg PO DAILY 12/07/18 12/07/18 History Allergies Allergy/AdvReac Type Severity Reaction Status Date / Time strawberry Allergy Mild Unknown Verified 11/02/18 09:30 allergy reaction Exam Vital signs and Labs for Last 24 Hours: Temp Pulse Resp BP Pulse Ox 98 F 77 18 175/76 H 97 12/07/18 06:55 12/07/18 06:55 12/07/18 06:55 12/07/18 06:55 12/07/18 06:55 Laboratory Results - last 24 hr 12/07/18 03:21: WBC 6.1, RBC 2.45 L, Hgb 7.0 L*, Hct 22.3 L*, MCV 91.2, MCH 28.5, MCHC 31.2 L, RDW 16.4, Plt Count 374, MPV 7.6, Neut % (Auto) 68.8, Lymph % (Auto) 19.7, Todd % (Auto) 6.4, Eos % (Auto) 4.3, Baso % (Auto) 0.8, Neut # (Auto) 4.2, Lymph # (Auto) 1.2, Todd # (Auto) 0.4, Eos # (Auto) 0.3, Baso # (Auto) 0.1 12/07/18 03:21: Sodium 147 H, Potassium 5.4 H, Chloride 113 H, Carbon Dioxide 17 L, Anion Gap 22.4 H, BUN 63 H, Creatinine 3.85 H, Estimated Creat Clear 21, Estimated GFR 16 L*, Est GFR ( Amer) 19 L*, Glucose 166 H, Calcium 8.0 L, Total Bilirubin 0.3, AST 31, ALT 32, Alkaline Phosphatase 132 H, Troponin I 0.06, Total Protein 7.1, Albumin 3.3 L, Globulin 3.8 H, Albumin/Globulin Ratio 0.9 L 12/07/18 03:21: B-Natriuretic Peptide 2380 H 12/07/18 03:21: PT 10.6, INR 1.03, APTT 29.7 12/07/18 03:23: Specimen Source Right radial, O2 % 8 lpm, 52% nc, ABG pH 7.34 L, ABG pCO2 30.8 L, ABG pO2 146.0 H, ABG HCO3 16.2 L, ABG Total CO2 17.2 L, ABG O2 Saturation 99, ABG Base Excess -9.6 L, Julius Test Acceptable 12/07/18 04:00: Lactate 0.6 12/07/18 04:10: Blood Type O Positive, Antibody Screen Negative, Crossmatch (AHG) See Detail 12/07/18 04:10: Ferritin 58 12/07/18 06:18: POC Glucose 180 H I & O for Last 24 hours: Intake & Output 12/04/18 12/05/18 12/06/18 12/07/18 11:59 11:59 11:59 11:59 Intake Total 200 / 200 Output Total 475 / 475 Balance -275 / -275 Weight 183 lb 3 oz Narrative: Patient is awake and alert in has mild dyspnea at rest that worsens with conversation. ENT exam is unrevealing. Neck has no lymphadenopathy. Lungs have diminished breath sounds at the bases but no wheezes or rales. Heart has a regular rate and rhythm. Abdomen is soft. Extremities are warm to the touch. Assessment and Plan (1) Anemia Current visit: Yes Status: Acute Qualifiers: Anemia type: due to chronic kidney disease Qualified Code(s): D64.9 - Anemia, unspecified Category: Medical Code(s): D64.9 - Anemia, unspecified (2) Congestive heart failure Current visit: Yes Status: Acute Qualifiers: Heart failure type: unspecified Heart failure chronicity: acute on chronic Qualified Code(s): I50.9 - Heart failure, unspecified Category: Medical Code(s): I50.9 - Heart failure, unspecified (3) CKD (chronic kidney disease) stage 4, GFR 15-29 ml/min Current visit: Yes Status: Chronic Category: Medical Code(s): N18.4 - Chronic kidney disease, stage 4 (severe) (4) Essential hypertension Current visit: Yes Status: Chronic Category: Medical Code(s): I10 - Essential (primary) hypertension - Assessment and plan all Dx Assessment and Plan for all problems:: 1. Check echocardiogram which has already been completed this morning 2. Patient will be given 2 units of packed red blood cells with a dose of Lasix after the first dose and possibly second dose. I believe patient is mildly fluid overloaded and his anemia is contributing to his shortness of breath. 3. Patient will be continued on antibiotics as chest x-ray has been interpreted as right lower lobe pneumonia. Patient does not have any infectious symptoms nor an elevated white blood cell count. Sputum culture will be collected if able
--- NOTE | 2018-12-07 07:35 | Pharmacy Consult Notes ---
[facility] Pharmacy VTE Monitoring - Patient Demographics Admission date: 12/07/18 Report Date: 12/07/18 Time: 07:35 Allergies/Adverse Reactions: Patient Allergies strawberry Allergy (Mild, Verified 11/02/18 09:30) Unknown allergy reaction Height: 1.78 m Weight: 83.092 kg Patient Problems: Current Active Problems Community acquired pneumonia (Acute) Acute exacerbation of chronic obstructive airways disease (Acute) Congestive heart failure (Acute) Anemia (Acute) CKD (chronic kidney disease) stage 4, GFR 15-29 ml/min (Chronic) Essential hypertension (Chronic) - VTE Risk Labs: VTE Related Lab Results Hgb 7.0 g/dL (14.1-18.0) L* 12/07/18 03:21 Hct 22.3 % (42.0-52.0) L* 12/07/18 03:21 Plt Count 374 K/mm3 (142-424) 12/07/18 03:21 PT 10.6 seconds (9.4-11.8) 12/07/18 03:21 INR 1.03 (0.9-1.1) 12/07/18 03:21 APTT 29.7 seconds (23.6-34.0) 12/07/18 03:21 BUN 63 mg/dL (7-18) H 12/07/18 03:21 Creatinine 3.85 mg/dL (0.70-1.30) H 12/07/18 03:21 Estimated Creat Clear 21 mL/min (50-200) 12/07/18 03:21 Was VTE Risk Assessment Performed: Yes VTE Score: 11 VTE Risk Level: Moderate Risk - Prophylaxis VTE Prophylaxis Ordered?: Yes Types of VTE Prophylaxis: TEDS Knee High Location of Applied Device: Bilateral Lower Extremeties - VTE Diagnosis Confirmed Treatment or plan recommended: Continue Current Treatment
[2018-12-07 14:12] LABS: Hemoglobin 8.6 g/dL (14.1-18.0)
--- NOTE | 2018-12-07 14:47 | Cardiology Report ---
PROCEDURE: INDICATIONS FOR THE TEST: Chest pain COPDX Heart Murmur Tobacco Smoking Palpitations Fatigue Syncope Edema HypertensionXDiabetes MellitusX Rheumatic Fever SOB CORTEZ Obesity Hyperlipidemia Family History HD Additional History CHF PATIENT INFORMATION HEIGHT: 68 WEIGHT:183 GENDER: Male B/P:175/76 2-D/M-MODE INTERPRETATION: 2-D MEASUREMENTS OBSERVED VALUES IN CMS Right Ventricular Dimension (RVDd) 2.1 Interventricular Septum (Thickness)(IVsd) 1.0 Left Ventricular Internal Dimensions(LVIDd) 6.2 Left Ventricular Posterior Wall (Thickness)(LVPWd) 1.2 Aortic Root 3.7 Aortic Cusp Separation 1.9 Left Atrial Dimensions (LAD) 3.6 2D 1. Left atrium is mildly enlarged, left ventricle is mildly dilated, there is mild concentric left ventricular hypertrophy, borderline left ventricular systolic function, visually estimated ejection fraction approximately 45%, with no regional wall motion abnormality. 2. The right atrium and right ventricle are mildly enlarged with normal contractility. 3. The aortic valve is minimally thickened and fibrosed. 4. The mitral and tricuspid valvular grossly normal. 5. The pulmonic valve is poorly present. 6. No significant pericardial effusion noted. DOPPLER INTERROGATION: Doppler interrogation of the aortic, mitral and tricuspid valvular presence of mild mitral and tricuspid regurgitation, grade 2 diastolic dysfunction seen with tissue Doppler evidence of raised left atrial pressure. Tricuspid regurgitation jet velocity is inadequate for calculation of the right ventricular systolic pressure. CONCLUSION: 1. Mildly enlarged left atrium, mildly dilated left ventricle, mild concentric left ventricular hypertrophy, borderline left ventricular systolic function, visually estimated ejection fraction of 45% with no regional wall motion abnormality, right 2. Diastolic dysfunction seen with tissue Doppler evidence of raised left atrial pressure. 3. Mild mitral and tricuspid regurgitation 4. No significant pericardial effusion noted.
[2018-12-08 06:16] LABS: Lymphocytes % 2.6 % (10-50); Monocytes # 0.2 K/mm3 (0.1-1.0); Neutrophils # 8.8 K/mm3 (1.8-7.8); Red Cell Distribution Width 16.3 % (11.5-17.5)
[2018-12-08 06:33] LABS: Basophils % 0.1 % (0.1-2.0); Eosinophils % 0.1 % (0.1-12.0); Lymphocytes # 0.3 K/mm3 (0.7-4.5); Mean Corpuscular HGB Conc 32.2 g/dL (31.8-35.4); Mean Corpuscular Hemoglobin 28.5 pg (27.0-31.2); Mean Corpuscular Volume 88.7 fl (80-94); Mean Platelet Volume 8.2 fl (7.4-10.4); Monocytes % 1.9 % (1.7-9.3); Neutrophils % 95.2 % (37.0-80.0); Platelet Count 308 K/mm3 (142-424); Red Blood Count 2.69 M/mm3 (4.60-6.20); White Blood Count 9.3 K/mm3 (4.8-10.8)
[2018-12-08 06:57] LABS: Hematocrit 23.8 % (42.0-52.0); Hemoglobin 7.7 g/dL (14.1-18.0)
[2018-12-08 07:10] LABS: Anion Gap 23.3 mEq/L (5-15); Calcium 7.9 mg/dL (8.5-10.1); Potassium 5.3 mmoL/L (3.5-5.1)
[2018-12-08 07:49] LABS: Lymphocytes % 6 % (10-50); Neutrophils % 94 % (42-76); RBC Morphology Normal; Total Cells Counted 100
--- NOTE | 2018-12-08 08:37 | Progress Note ---
Internal Medicine - PN: Subj *Date: 12/08/18 *Time: 08:34 Interval history: Patient per reports significant improvement this morning compared to yesterday. After receiving 2 units of packed red blood cells patient H&H duke although not quite as high as expected. This morning hemoglobin is dropped again to 7.7. Patient reports that over the last week his stools have been darker in color. He denies abdominal pain. Patient denies recurrence of shortness of breath. He has been able to produce some sputum which has been sent for culture Exam Vital signs and Labs for Last 24 Hours: Temp Pulse Resp BP Pulse Ox 98.9 F 83 19 137/72 95 12/08/18 08:00 12/08/18 08:00 12/08/18 08:00 12/08/18 08:00 12/08/18 08:00 Laboratory Results - last 24 hr 12/07/18 04:10: Blood Type O Positive, Antibody Screen Negative, Crossmatch (AHG) See Detail 12/07/18 08:12: Troponin I 0.07 H 12/07/18 11:04: Troponin I 0.06 12/07/18 11:16: POC Glucose 360 H* 12/07/18 13:44: Hgb 8.6 L D, Hct 27.0 L 12/07/18 16:37: POC Glucose 382 H* 12/07/18 20:42: POC Glucose 422 H* 12/08/18 06:05: WBC 9.3 D, RBC 2.69 L, Hgb 7.7 L*, Hct 23.8 L*, MCV 88.7, MCH 28.5, MCHC 32.2, RDW 16.3, Plt Count 308, MPV 8.2, Neut % (Auto) 95.2 H, Lymph % (Auto) 2.6 L, [place] % (Auto) 1.9, Eos % (Auto) 0.1, Baso % (Auto) 0.1, Neut # (Auto) 8.8 H, Lymph # (Auto) 0.3 L, [place] # (Auto) 0.2, Eos # (Auto) 0.0, Baso # (Auto) 0.0, Total Counted 100, Neutrophils % (Manual) 94 H, Lymphocytes % (Manual) 6 L, Platelet Estimate Normal, RBC Morphology Normal 12/08/18 06:05: Sodium 143, Potassium 5.3 H, Chloride 109 H, Carbon Dioxide 16 L , Anion Gap 23.3 H, BUN 79 H D, Creatinine 4.20 H, Estimated Creat Clear 19, Estimated GFR 14 L*, Est GFR ( Amer) 17 L*, Glucose 243 H, Calcium 7.9 L 12/08/18 06:21: POC Glucose 258 H I & O for Last 24 hours: Intake & Output 12/05/18 12/06/18 12/07/18 12/08/18 11:59 11:59 11:59 11:59 Intake Total 1170 / 1170 1540 / 1540 Output Total 725 / 725 1650 / 1650 Balance 445 / 445 -110 / -110 Weight 183 lb 3 oz 184 lb Narrative: Patient is awake and alert. His color looks better. Lungs have diffuse expiratory wheezes anteriorly and posteriorly. No rales or rhonchi. Heart has a regular rate and rhythm. Abdomen is soft and nontender Assessment and Plan (1) Anemia Current visit: Yes Status: Acute Qualifiers: Anemia type: due to chronic kidney disease Chronic kidney disease stage: stage 4 (severe) Qualified Code(s): N18.4 - Chronic kidney disease, stage 4 (severe); D63.1 - Anemia in chronic kidney disease Category: Medical Code(s): D64.9 - Anemia, unspecified Transfuse additional 2 units of packed red blood cells today with 1 hour posttransfusion H&H (2) Congestive heart failure Current visit: Yes Status: Acute Qualifiers: Heart failure type: unspecified Heart failure chronicity: acute on chronic Qualified Code(s): I50.9 - Heart failure, unspecified Category: Medical Code(s): I50.9 - Heart failure, unspecified Closely monitor fluid status. Patient will be given Lasix after his 2 units of packed red blood cells (3) CKD (chronic kidney disease) stage 4, GFR 15-29 ml/min Current visit: Yes Status: Chronic Category: Medical Code(s): N18.4 - Chronic kidney disease, stage 4 (severe) (4) Essential hypertension Current visit: Yes Status: Chronic Category: Medical Code(s): I10 - Essential (primary) hypertension Add Norvasc 10 mg and increase him to over 120 mg daily (5) Upper GI bleed Current visit: Yes Status: Suspected Category: Medical Code(s): K92.2 - Gastrointestinal hemorrhage, unspecified Consult Dr. Burns for endoscopy on Monday morning. Start PPI (6) CAD (coronary artery disease) Current visit: No Status: Chronic Qualifiers: Coronary Disease-Associated Artery/Lesion type: [place] artery [place] vs. transplanted heart: [place] heart Associated angina: with stable angina Qualified Code(s): I25.118 - Atherosclerotic heart disease of [place] coronary artery with other forms of angina pectoris Category: Medical Code(s): I25.10 - Atherosclerotic heart disease of [place] coronary artery without angina pectoris (7) Acute exacerbation of chronic obstructive airways disease Current visit: Yes Status: Acute Category: Medical Code(s): J44.1 - Chronic obstructive pulmonary disease with (acute) exacerbation Continue IV steroids and duo nebs (8) Community acquired pneumonia Current visit: Yes Status: Suspected Qualifiers: Laterality: right Lung location: lower lobe of lung Qualified Code(s): J18.1 - Lobar pneumonia, unspecified organism Category: Medical Code(s): J18.9 - Pneumonia, unspecified organism Start oral Levaquin
[2018-12-08 18:28] LABS: Hematocrit 29.4 % (42.0-52.0); Hemoglobin 9.6 g/dL (14.1-18.0)
[2018-12-09 06:20] LABS: Eosinophils % 0.1 % (0.1-12.0); Hemoglobin 9.6 g/dL (14.1-18.0); Lymphocytes # 0.3 K/mm3 (0.7-4.5); Lymphocytes % 2.8 % (10-50); Mean Corpuscular HGB Conc 32.2 g/dL (31.8-35.4); Mean Corpuscular Hemoglobin 28.5 pg (27.0-31.2); Mean Corpuscular Volume 88.5 fl (80-94); Mean Platelet Volume 7.8 fl (7.4-10.4); Monocytes # 0.4 K/mm3 (0.1-1.0); Monocytes % 3.8 % (1.7-9.3); Neutrophils # 10.2 K/mm3 (1.8-7.8); Neutrophils % 93.3 % (37.0-80.0); Platelet Count 311 K/mm3 (142-424); Red Blood Count 3.38 M/mm3 (4.60-6.20); Red Cell Distribution Width 15.7 % (11.5-17.5); White Blood Count 10.9 K/mm3 (4.8-10.8)
[2018-12-09 06:26] LABS: Hematocrit 29.9 % (42.0-52.0)
[2018-12-09 06:37] LABS: Anion Gap 22.9 mEq/L (5-15); Calcium 8.4 mg/dL (8.5-10.1); Potassium 5.9 mmoL/L (3.5-5.1)
[2018-12-09 06:54] LABS: Lymphocytes % 3 % (10-50); Monocytes % 2 % (2-9); Neutrophils % 88 % (42-76); Total Cells Counted 100
[2018-12-09 06:55] LABS: Rouleaux 1+
--- NOTE | 2018-12-09 07:50 | Progress Note ---
Internal Medicine - PN: Subj *Date: 12/09/18 *Time: 07:49 Interval history: Patient tells me this morning that when he awoke he coughed and produced several large amounts of sputum which she expectorated and since that time has felt significantly improved in regards to shortness of breath. He has not had a bowel movement in the last 24 hours Exam Vital signs and Labs for Last 24 Hours: Temp Pulse Resp BP Pulse Ox 97.7 F 74 20 170/84 H 97 12/09/18 04:00 12/09/18 06:21 12/09/18 04:00 12/09/18 04:00 12/09/18 06:21 Laboratory Results - last 24 hr 12/07/18 04:10: Blood Type O Positive, Antibody Screen Negative, Crossmatch (AHG) See Detail 12/07/18 04:10: Iron 23 L, TIBC 303, Iron Saturation 8 L, Unsaturated IBC 280 12/08/18 06:05: Total Counted 100, Neutrophils % (Manual) 94 H, Lymphocytes % (Manual) 6 L, Platelet Estimate Normal, RBC Morphology Normal 12/08/18 10:53: POC Glucose 312 H* 12/08/18 13:43: Stool Occult Blood Negative 12/08/18 16:37: POC Glucose 287 H 12/08/18 18:05: Hgb 9.6 L D, Hct 29.4 L 12/08/18 21:16: POC Glucose 165 H 12/09/18 06:00: WBC 10.9 H, RBC 3.38 L D, Hgb 9.6 L, Hct 29.9 L, MCV 88.5, MCH 28.5, MCHC 32.2, RDW 15.7, Plt Count 311, MPV 7.8, Neut % (Auto) 93.3 H, Lymph % (Auto) 2.8 L, [place] % (Auto) 3.8, Eos % (Auto) 0.1, Baso % (Auto) 0.0 L, Neut # (Auto) 10.2 H, Lymph # (Auto) 0.3 L, [place] # (Auto) 0.4, Eos # (Auto) 0.0, Baso # (Auto) 0.0, Total Counted 100, Neutrophils % (Manual) 88 H, Band Neutrophils % 7.0, Lymphocytes % (Manual) 3 L, Monocytes % (Manual) 2, Platelet Estimate Normal, Poikilocytosis 1+, Rouleaux 1+ 12/09/18 06:00: Sodium 142, Potassium 5.9 H, Chloride 108 H, Carbon Dioxide 17 L , Anion Gap 22.9 H, BUN 95 H, Creatinine 4.45 H, Estimated Creat Clear 19, Estimated GFR 13 L*, Est GFR ( Amer) 16 L*, Glucose 206 H, Calcium 8.4 L 12/09/18 06:04: POC Glucose 219 H I & O for Last 24 hours: Intake & Output 12/06/18 12/07/18 12/08/18 12/09/18 11:59 11:59 11:59 11:59 Intake Total 1170 / 1170 1540 / 1540 1586 / 1586 Output Total 725 / 725 1750 / 1750 800 / 800 Balance 445 / 445 -210 / -210 786 / 786 Weight 183 lb 3 oz 184 lb 188 lb 1 oz Microbiology Reports for the Last 24 Hours: Microbiology 12/08/18 04:30 Sputum - Expectorated Sputum Gram Stain - Final 12/08/18 04:30 Sputum - Expectorated Sputum Sputum Culture - Preliminary 12/07/18 04:00 Blood Blood Culture - Preliminary NO GROWTH AFTER 48 HOURS 12/07/18 04:00 Blood Blood Culture - Preliminary NO GROWTH AFTER 48 HOURS Narrative: He is in no distress. When I entered the room the patient is up moving about the room. He seems energetic. Lungs have diminished breath sounds at the right base but no focal rales. Wheezing that was present yesterday is now absent. Heart has a regular rate and rhythm. Abdomen is soft and nontender. Lower extremities have Assessment and Plan (1) Anemia Current visit: Yes Status: Acute Qualifiers: Anemia type: due to chronic kidney disease Chronic kidney disease stage: stage 4 (severe) Qualified Code(s): N18.4 - Chronic kidney disease, stage 4 (severe); D63.1 - Anemia in chronic kidney disease Category: Medical Code(s): D64.9 - Anemia, unspecified (2) Congestive heart failure Current visit: Yes Status: Acute Qualifiers: Heart failure type: unspecified Heart failure chronicity: acute on chronic Qualified Code(s): I50.9 - Heart failure, unspecified Category: Medical Code(s): I50.9 - Heart failure, unspecified (3) CKD (chronic kidney disease) stage 4, GFR 15-29 ml/min Current visit: Yes Status: Chronic Category: Medical Code(s): N18.4 - Chronic kidney disease, stage 4 (severe) (4) Essential hypertension Current visit: Yes Status: Chronic Category: Medical Code(s): I10 - Essential (primary) hypertension (5) Upper GI bleed Current visit: Yes Status: Suspected Category: Medical Code(s): K92.2 - Gastrointestinal hemorrhage, unspecified (6) CAD (coronary artery disease) Current visit: No Status: Chronic Qualifiers: Coronary Disease-Associated Artery/Lesion type: [place] artery [place] vs. transplanted heart: [place] heart Associated angina: with stable angina Qualified Code(s): I25.118 - Atherosclerotic heart disease of [place] coronary artery with other forms of angina pectoris Category: Medical Code(s): I25.10 - Atherosclerotic heart disease of [place] coronary artery without angina pectoris (7) Acute exacerbation of chronic obstructive airways disease Current visit: Yes Status: Acute Category: Medical Code(s): J44.1 - Chronic obstructive pulmonary disease with (acute) exacerbation (8) Community acquired pneumonia Current visit: Yes Status: Suspected Qualifiers: Laterality: right Lung location: lower lobe of lung Qualified Code(s): J18.1 - Lobar pneumonia, unspecified organism Category: Medical Code(s): J18.9 - Pneumonia, unspecified organism - Assessment and plan all Dx Assessment and Plan for all problems:: No change in plan of care today. N.p.o. after midnight for EGD
[2018-12-10 06:23] LABS: Anion Gap 20.3 mEq/L (5-15); Potassium 5.3 mmoL/L (3.5-5.1)
[2018-12-10 06:28] LABS: Eosinophils % 0.1 % (0.1-12.0); Hematocrit 30.5 % (42.0-52.0); Hemoglobin 9.9 g/dL (14.1-18.0); Lymphocytes # 0.3 K/mm3 (0.7-4.5); Mean Corpuscular HGB Conc 32.5 g/dL (31.8-35.4); Mean Corpuscular Hemoglobin 28.6 pg (27.0-31.2); Mean Platelet Volume 8.1 fl (7.4-10.4); Monocytes # 0.4 K/mm3 (0.1-1.0); Neutrophils # 10.2 K/mm3 (1.8-7.8); Neutrophils % 92.9 % (37.0-80.0); Platelet Count 323 K/mm3 (142-424); Red Blood Count 3.47 M/mm3 (4.60-6.20); Red Cell Distribution Width 15.7 % (11.5-17.5)
--- NOTE | 2018-12-10 07:13 | Progress Note ---
Internal Medicine - PN: Subj *Date: 12/10/18 *Time: 07:10 Interval history: Patient has no complaints this morning. He continues to have a cough that is productive of some reddish brown sputum. Plavix has now been held since Monday morning. Exam Vital signs and Labs for Last 24 Hours: Temp Pulse Resp BP Pulse Ox 97.8 F 78 20 165/77 H 96 12/10/18 03:40 12/10/18 05:35 12/10/18 03:40 12/10/18 03:40 12/10/18 05:35 Laboratory Results - last 24 hr 12/09/18 11:06: POC Glucose 255 H 12/09/18 16:13: POC Glucose 245 H 12/10/18 05:39: WBC 11.0 H, RBC 3.47 L, Hgb 9.9 L, Hct 30.5 L, MCV 88.0, MCH 28.6, MCHC 32.5, RDW 15.7, Plt Count 323, MPV 8.1, Neut % (Auto) 92.9 H, Lymph % (Auto) 3.0 L, [place] % (Auto) 4.0, Eos % (Auto) 0.1, Baso % (Auto) 0.0 L, Neut # (Auto) 10.2 H, Lymph # (Auto) 0.3 L, [place] # (Auto) 0.4, Eos # (Auto) 0.0, Baso # (Auto) 0.0 12/10/18 05:39: Sodium 143, Potassium 5.3 H, Chloride 111 H, Carbon Dioxide 17 L , Anion Gap 20.3 H, BUN 107 H*, Creatinine 4.51 H, Estimated Creat Clear 19, Estimated GFR 13 L*, Est GFR ( Amer) 16 L*, Glucose 79 D, Calcium 8.0 L I & O for Last 24 hours: Intake & Output 12/07/18 12/08/18 12/09/18 12/10/18 11:59 11:59 11:59 11:59 Intake Total 1170 / 1170 1540 / 1540 1946 / 1946 990 / 990 Output Total 725 / 725 1750 / 1750 800 / 800 550 / 550 Balance 445 / 445 -210 / -210 1146 / 1146 440 / 440 Weight 183 lb 3 oz 184 lb 188 lb 1 oz 192 lb 2 oz Microbiology Reports for the Last 24 Hours: Microbiology 12/08/18 04:30 Sputum - Expectorated Sputum Gram Stain - Final 12/08/18 04:30 Sputum - Expectorated Sputum Sputum Culture - Preliminary 12/07/18 04:00 Blood Blood Culture - Preliminary NO GROWTH AFTER 48 HOURS 12/07/18 04:00 Blood Blood Culture - Preliminary NO GROWTH AFTER 48 HOURS Narrative: Patient is awake and alert. Lungs are clear to auscultation except for diminished breath sounds in the right base. Heart has a regular rate and r hythm. Abdomen is soft, nontender, nondistended. Assessment and Plan (1) Anemia Current visit: Yes Status: Acute Qualifiers: Anemia type: due to chronic kidney disease Chronic kidney disease stage: stage 4 (severe) Qualified Code(s): N18.4 - Chronic kidney disease, stage 4 (severe); D63.1 - Anemia in chronic kidney disease Category: Medical Code(s): D64.9 - Anemia, unspecified (2) Congestive heart failure Current visit: Yes Status: Acute Qualifiers: Heart failure type: systolic Heart failure chronicity: acute on chronic Qualified Code(s): I50.23 - Acute on chronic systolic (congestive) heart failure Category: Medical Code(s): I50.9 - Heart failure, unspecified (3) CKD (chronic kidney disease) stage 4, GFR 15-29 ml/min Current visit: Yes Status: Chronic Category: Medical Code(s): N18.4 - Chronic kidney disease, stage 4 (severe) (4) Essential hypertension Current visit: Yes Status: Chronic Category: Medical Code(s): I10 - Essential (primary) hypertension (5) Upper GI bleed Current visit: Yes Status: Suspected Category: Medical Code(s): K92.2 - Gastrointestinal hemorrhage, unspecified (6) CAD (coronary artery disease) Current visit: No Status: Chronic Qualifiers: Coronary Disease-Associated Artery/Lesion type: [place] artery [place] vs. transplanted heart: [place] heart Associated angina: with stable angina Qualified Code(s): I25.118 - Atherosclerotic heart disease of [place] coronary artery with other forms of angina pectoris Category: Medical Code(s): I25.10 - Atherosclerotic heart disease of [place] coronary artery without angina pectoris (7) Acute exacerbation of chronic obstructive airways disease Current visit: Yes Status: Acute Category: Medical Code(s): J44.1 - Chronic obstructive pulmonary disease with (acute) exacerbation (8) Community acquired pneumonia Current visit: Yes Status: Suspected Qualifiers: Laterality: right Lung location: lower lobe of lung Qualified Code(s): J18.1 - Lobar pneumonia, unspecified organism Category: Medical Code(s): J18.9 - Pneumonia, unspecified organism (9) Hypertensive heart disease Current visit: Yes Status: Acute Qualifiers: Heart failure presence: with heart failure Heart failure type: systolic Heart failure chronicity: acute on chronic Qualified Code(s): I11.0 - Hypertensive heart disease with heart failure; I50.23 - Acute on chronic systolic (congestive) heart failure Category: Medical Code(s): I11.9 - Hypertensive heart disease without heart failure - Assessment and plan all Dx Assessment and Plan for all problems:: 1. Consult with Dr. Burns today for EGD. Decision on whether to restart Plavix will be made after EGD. 2. Patient's renal function has decreased during hospitalization. Patient does not wish for dialysis. He is stable at this time
[2018-12-10 08:25] LABS: Lymphocytes % 2 % (10-50); Monocytes % 4 % (2-9); Neutrophils % 92 % (42-76); Total Cells Counted 100
--- NOTE | 2018-12-10 10:19 | Progress Note ---
[facility] Anesthesia Checklist - Structural Data Admitted From: Home Planned Operative Procedure/s: egd Consent for Planned Operative Procedure(s) Verified: Yes - Airway Assessment C-Spine Mobility Assessed: Yes TMJ Mobility Assessed: Yes Dentition: Edentulous - Neurological Assessment Level of Consciousness: Awake, Alert, Appropriate - Anesthesia Plan Anesthesia Risk discussed: Yes Anesthesia Plan: Verified ASA Class: III Anesthesia Type: MAC [facility] History I have reviewed the patient's past medical history: Yes Medical History: Reports:: Congestive Heart Failure, Chronic Obstructive Pulmonary Disease (COPD), Depression, Diabetes Mellitus Type 2, Hyperlipidemia, Hypertension, Lung Disease, Myocardial Infarction Denies:: Cancer, Diabetes Mellitus Type 1, Home Oxygen, Internal Pacemaker, MRSA, Seizures *Have you ever received a pneumonia vaccine?: Yes *Have you received a flu vaccine this season?: Yes Other Medical History: Reports: Anemia, Arthritis, Cataracts, Hypothyroidism Laterality Cases: Left: Arthroscopy Shoulder, Right: Carotid Endarterectomy Other Surgeries: Yes: Cardiac Catheterization, Colonoscopy, Coronary Stent. No: Pacemaker Amputation: No Fractures: No - *Social History Educational Level: Attended High School Smoking Status: Former smoker Tobacco Type: cigarettes # Packs/Day (cigarettes): 1 Alcohol Intake: former Alcohol Intake Frequency:: a few times a month Substance Use Type: denies use *Occupational Status:: retired Household Members: friend(s) *Travel in the last 8 weeks: None - Psychiatric History Expresses thoughts of harming self/others: None Suicide Plan Description: No Plan Pschychiatric History:: Reports:: Depression Family Hx:: Kidney Disease, Diabetes
--- NOTE | 2018-12-10 10:47 | Procedure Note ---
[facility] Procedure Note Procedure Note:: Upper Endoscopy Procedure Report: Esophagogastroduodenoscopy with cold biopsies and APC ablation Endoscopost: Ludwig Burns II, MD Referring Physician: Gerry Albarado MD Date of Procedure: December 10, 2018 Equipment: Olympus GIF 180 standard upper endoscope Sedation: MAC sedation Indications: Mr. Cochran is a 68-year-old gentleman with chronic renal insufficiency (stage IV) and anemia. He presented with dyspnea. The patient's hemoglobin and hematocrit were 7.0 and 22.3 on admission (12/07/2018). His creatinine was 3.85. The patient has had multiple blood transfusions. He reports no melena or hematochezia. He is on anticoagulation with Plavix and aspirin. He reports no abdominal pain, weight loss, heartburn or reflux. He reports no dysphagia. He did have a colonoscopy a few months ago elsewhere and had 15 colon polyps removed. He has not had any recent upper endoscopy. He is Hemoccult negative. Procedure: Prior to the procedure, a history and physical exam was performed, and patient's medications and allergies were reviewed. The risks, benefits and alternatives of the sedation and procedure were discussed with the patient. All questions were answered and informed consent was obtained. The patient was brought to the procedure room. Patient identification and proposed procedure were verified by the physician and the nurse. The patient was placed in a left lateral decubitus position and the scope was passed under direct vision. Throughout the procedure, the patient's blood pressure, pulse, and oxygen saturations were monitored continuously. The upper GI endoscopy was accomplished without difficulty. The patient tolerated the procedure well. Findings: The scope was passed directly into the upper esophagus and advanced to the third portion of the duodenum. The post bulbar duodenum and duodenal bulb were normal with normal mucosa and conniventes. Cold biopsies were taken from the post bulbar duodenum to rule out celiac disease. The scope was withdrawn through a normal duodenal bulb and pylorus into the stomach. There was moderate bile reflux with mild linear reactive gastropathy of the antrum and body. There was coffee ground heme within the body of the stomach and after washing this did appear to be multiple angiodysplasia/AVMs. The APC was used to cauterize these angiodysplasias which were linear. Some of this was related to the reactive gastropathy. Upon retroflexion there was no hiatal hernia. 2 biopsies were taken in the antrum and along the lesser curvature for histology to rule out gastritis and/or H pylori. The scope was then withdrawn into the esophagus. There was no evidence of reflux esophagitis or Galarza's. The remainder of the esophageal mucosa was normal. Impression: 1. Gastric angiodysplasia status post APC ablation with some coffee-ground noted 2. Bile reflux with mild linear reactive gastropathy Plan: I will follow up the biopsies. I do feel that his anemia is multifactorial and certainly the chronic renal failure is the primary etiology. I do feel that he has some chronic GI blood loss from the angiodysplasias. I will discussed this with patient and family. Certainly the anticoagulation plays a role.
--- NOTE | 2018-12-10 10:59 | Progress Note ---
[facility] Anesthesia Checklist - Structural Data Admitted From: Home Planned Operative Procedure/s: colonoscopy Consent for Planned Operative Procedure(s) Verified: Yes - Airway Assessment C-Spine Mobility Assessed: Yes TMJ Mobility Assessed: Yes Dentition: Good Dentition - Neurological Assessment Level of Consciousness: Awake, Alert, Appropriate - Anesthesia Plan Anesthesia Risk discussed: Yes Anesthesia Plan: Verified ASA Class: II Anesthesia Type: [facility] History I have reviewed the patient's past medical history: Yes Medical History: Reports:: Congestive Heart Failure, Chronic Obstructive Pulmonary Disease (COPD), Depression, Diabetes Mellitus Type 2, Hyperlipidemia, Hypertension, Lung Disease, Myocardial Infarction Denies:: Cancer, Diabetes Mellitus Type 1, Home Oxygen, Internal Pacemaker, MRSA, Seizures *Have you ever received a pneumonia vaccine?: Yes *Have you received a flu vaccine this season?: Yes Other Medical History: Reports: Anemia, Arthritis, Cataracts, Hypothyroidism Laterality Cases: Left: Arthroscopy Shoulder, Right: Carotid Endarterectomy Other Surgeries: Yes: Cardiac Catheterization, Colonoscopy, Coronary Stent. No: Pacemaker Amputation: No Fractures: No - *Social History Educational Level: Attended High School Smoking Status: Former smoker Tobacco Type: cigarettes # Packs/Day (cigarettes): 1 Alcohol Intake: former Alcohol Intake Frequency:: a few times a month Substance Use Type: denies use *Occupational Status:: retired Household Members: friend(s) *Travel in the last 8 weeks: None - Psychiatric History Expresses thoughts of harming self/others: None Suicide Plan Description: No Plan Pschychiatric History:: Reports:: Depression Family Hx:: Kidney Disease, Diabetes
--- NOTE | 2018-12-15 08:01 | Discharge Summary ---
General - General Admission date:: 12/07/18 Discharge date: 12/15/18 HPI HPI: 68-year-old male with history of coronary artery disease, COPD, stage IV chronic kidney disease, diabetes, anemia of chronic disease presented to the emergency department with progressive onset of shortness of breath. Patient states he could feel the shortness of breath developed approximately a week ago and his gradually worsened each day until the point where he felt like he needed to come to the emergency department overnight. Patient denies cough. Patient denies fevers and chills. In the emergency department he was found to be anemic with an elevated BNP. Patient was given an IV dose of Lasix which he reports he has had some response to. He is also being transfused packed red blood cells. This will be the third time in the last 6-7 months the patient has required blood transfusion Hospital Course Hospital Course: See information under diagnoses. Objective Vital signs: Temp Pulse Resp BP Pulse Ox 97.6 F 75 20 142/72 H 90 L 12/10/18 11:15 12/10/18 15:15 12/10/18 15:15 12/10/18 15:15 12/10/18 15:15 DS: Diagnosis - Discharge Diagnosis (1) Anemia Status: Acute Problem details: Patient was admitted for his anemia and decision was made to transfuse packed red blood cells. Patient has underlying anemia of chronic disease and had received outpatient transfusion of PRBCs over the last 6 months. However patient admitted that he had noticed a change in stools with darkening in their color. He takes both aspirin and Plavix. Plavix was held and on December 10 patient underwent endoscopy by Dr. Burns. Patient was found to have arterial venous malformations 1 of which showed evidence of recent bleeding. These were treated during EGD. As patient had no signs of further bleeding and his H&H remained stable for 48 hours patient was discharged home and will follow-up in the office on December 14. Patient received a total of 3 units of packed red cells while hospitalized (2) Congestive heart failure Status: Acute Problem details: Patient was felt to be fluid overloaded on admission with suspicion of congestive heart failure. Patient has history of coronary artery disease with previous ejection fraction of around 45%. Repeat echo showed stable ejection fraction. Patient was significantly dyspneic although I felt this was due primarily to his anemia. Once his anemia was improved his dyspnea seemed to resolve despite the presence of both CHF and what appear to be right lower lobe pneumonia on an x-ray. Attempts were made to diurese the patient, during and after transfusions. Patient had seemingly good response to intravenous diuretics although this did raise his creatinine while hospitalized. 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 He has no intention of pursuing dialysis when that day comes. Creatinine duke from 3.2-4.2 while hospitalized likely due to diuretics (4) Essential hypertension Status: Chronic Problem details: Blood pressure was elevated throughout hospitalization. Medication adjustments were made and this will be followed up with as an outpatient (5) Upper GI bleed Status: Suspected Problem details: See details under anemia (6) CAD (coronary artery disease) Status: Chronic (7) Acute exacerbation of chronic obstructive airways disease Status: Acute Problem details: Patient had significant wheezing upon admission to the floor. Patient was started on intravenous steroids and ordered duo nebs. Sputum culture was obtained and patient was started on intravenous antibiotics to include Levaquin. After transfusions patient's dyspnea improved significantly and after 48 hours his wheezing had nearly resolved and he was off supplemental oxygen. Patient was discharged home on steroids and oral Levaquin. Subsequent sputum culture came back positive for Pseudomonas (8) Community acquired pneumonia Status: Suspected Problem details: See details under COPD exacerbation (9) Hypertensive heart disease Status: Acute Discharge Plan - Patient Discharge Instructions ACTIVITY: Continue current activity DIET: continue same diet Additional Instructions: Bring all medicines to your follow up visit Patient Instructions: Pneumonia-Adult, Heart Failure, Blood Transfusion, Anemia, High Blood Pressure, Pneumococcal Vaccine, DI for Heart Failure, DI for Pneumonia -- Adult, DI for Blood Transfusion, Gastrointestinal Bleeding - Follow up Plan Follow up with: Gerry Albarado MD [Primary Care Provider] - 12/14/18 10:00 am Disposition: Home, Self-Half-Way Medications: Home Medications Medication Instructions Recorded Confirmed Type albuterol sulfate HFA 90 2 puff INHALATION Q4-6H PRN 12/18/17 12/07/18 History mcg/actuation aerosol inhaler atorvastatin 40 mg tablet 40 mg PO DAILY tab 12/18/17 12/07/18 History budesonide-formoterol HFA 160 2 puff INHALATION BID 12/18/17 12/07/18 History mcg-4.5 mcg/actuation aerosol inhaler clopidogrel 75 mg tablet 75 mg PO DAILY tab 12/18/17 12/07/18 History levothyroxine 88 mcg tablet 88 mcg PO DAILY tab 12/18/17 12/07/18 History pantoprazole 40 mg tablet,delayed 40 mg PO DAILY 12/18/17 12/07/18 History release Aspirin 81 mg PO DAILY 01/24/18 12/07/18 History Amlodipine Besylate [Amlodipine 5 mg PO BID 12/07/18 12/07/18 History 5mg tab] Furosemide [Furosemide 40MG tAB] 40 mg PO MOWEFR 12/07/18 12/07/18 History Hydralazine HCl 50 mg PO TID 12/07/18 12/07/18 History Insulin Glargine,Hum.rec.anlog 25 unit SQ HS 12/07/18 12/07/18 History [Lantus Insulin 100units/mL 10mL vial] Isosorbide Mononitrate [Imdur 60mg 60 mg PO DAILY 12/07/18 12/07/18 History ER tablet] Sertraline HCl [Zoloft 50mg tablet] 50 mg PO DAILY 12/07/18 12/07/18 History levoFLOXacin [Levofloxacin 750MG 750 mg PO QODHS #5 tab 12/10/18 Rx Tablet] Prescriptions/Medication Reconciliation: New levoFLOXacin [Levofloxacin 750MG Tablet] 750 mg PO QODHS #5 tab Continued budesonide-formoterol HFA 160 mcg-4.5 mcg/actuation aerosol inhaler 2 puff INHALATION BID albuterol sulfate HFA 90 mcg/actuation aerosol inhaler 2 puff INHALATION Q4- 6H PRN PRN Reason: Shortness Of Breath clopidogrel 75 mg tablet 75 mg PO DAILY tab levothyroxine 88 mcg tablet 88 mcg PO DAILY tab atorvastatin 40 mg tablet 40 mg PO DAILY tab pantoprazole 40 mg tablet,delayed release 40 mg PO DAILY Aspirin 81 mg PO DAILY Hydralazine HCl 50 mg PO TID Sertraline HCl [Zoloft 50mg tablet] 50 mg PO DAILY Insulin Glargine,Hum.rec.anlog [Lantus Insulin 100units/mL 10mL vial] 25 unit SQ HS Furosemide [Furosemide 40MG tAB] 40 mg PO MOWE Isosorbide Mononitrate [Imdur 60mg ER tablet] 60 mg PO DAILY Amlodipine Besylate [Amlodipine 5mg tab] 5 mg PO BID
== END 2018-12-10 15:27 | disposition home or self-care (01) | DRG 377 ==
LOC: ER 03:19 → ICU 03:19 → 2ND 05:05
PROVIDERS: ADMIT Family Medicine; ATTEND Family Medicine
CPT/HCPCS: 36415; 71010; 71045; 80048; 80053; 82272; 82728; 82803; 82962; 83540; 83550; 83605; 83880; 84484; 85007; 85014; 85018; 85025; 85610; 85730; 86850; 87040; 87070; 87077; 87186; 87205; 88305; 93005; 93306; 94640; 94761; 96365; 96367; 96375; 99285; C2618; G0328; J0456; P9016

== ENCOUNTER → 2018-12-27 13:07 | Outpatient (CLI) | payer MEDICARE, SELFPAY ==
[2018-12-27 13:12] LABS: Microscopic, Urine URINE MICROSCOPIC (MICROSCOPIC)
[2018-12-27 14:35] LABS: Basophils % 0.7 % (0.1-2.0); Eosinophils # 0.1 K/mm3 (0.0-0.4); Eosinophils % 1.9 % (0.1-12.0); Hematocrit 24.5 % (42.0-52.0); Hemoglobin 8.1 g/dL (14.1-18.0); Lymphocytes # 0.6 K/mm3 (0.7-4.5); Lymphocytes % 12.2 % (10-50); Mean Corpuscular HGB Conc 33.1 g/dL (31.8-35.4); Mean Corpuscular Hemoglobin 28.8 pg (27.0-31.2); Mean Platelet Volume 7.7 fl (7.4-10.4); Monocytes # 0.2 K/mm3 (0.1-1.0); Monocytes % 4.4 % (1.7-9.3); Neutrophils % 80.7 % (37.0-80.0); Platelet Count 297 K/mm3 (142-424); Red Blood Count 2.82 M/mm3 (4.60-6.20); Red Cell Distribution Width 15.3 % (11.5-17.5); White Blood Count 4.9 K/mm3 (4.8-10.8)
[2018-12-27 15:13] LABS: Albumin Level 3.1 gm/dL (3.4-5.0); Carbon Dioxide 22 mmol/L (21.0-32.0); Chloride 110 mmol/L (98-107); Creatinine,Serum 2.62 mg/dL (0.70-1.30); Estimated Glomerular Filt Rate 24 ml/min (>60); Ferritin 225 ng/mL (8-388); GFR (African American) 29 ML/MIN (>60); Glucose 123 mg/dL (74-106); Phosphorous 5.2 mg/dL (2.4-4.9); Sodium 145 mmol/L (136-145)
[2018-12-27 15:24] LABS: Blood Urea Nitrogen 79 mg/dL (7-18)
[2018-12-27 15:25] LABS: Calcium 6.3 mg/dL (8.5-10.1)
[2018-12-27 18:29] LABS: Creatinine,Urine Random 87 mg/dL (20-320); Total Protein,Urine Random 245.3 mg/dL (0.0-11.9)
[2018-12-27 20:04] LABS: Appearance,Urine CLEAR (Clear); Bilirubin,Urine Negative (Negative); Blood, Urine Negative (Negative); Color,Urine YELLOW (Yellow); Glucose,Urine (UA) Negative (Negative); Ketones,Urine Negative (Negative); Leukocyte Esterase,Urine Negative (Negative); Nitrate,Urine Negative (Negative); Protein,Urine 2+ (Negative); Urobilinogen,Urine 0.2 EU/dl (0.2)
[2018-12-27 20:05] LABS: Bacteria,Urine Trace /lpf; WBC,Urine Occasional #/hpf (0-3)
[2018-12-28 09:29] LABS: Iron 41 ug/dL (38-169); UIBC 212 ug/dL (111-343)
[2018-12-28 14:42] LABS: Iron Saturation 16 % (15-55); Parathyroid Hormone Intact 233 pg/mL (15-65)
[2018-12-28 14:43] LABS: Vitamin D 25 Hydroxy 14.4 ng/mL (30.0-100.0)
== END ==
PROVIDERS: Visit Provider Hospitalist
DX: N18.5 Chronic kidney disease, stage 5 (principal); D64.9 Anemia, unspecified
CPT/HCPCS: 36415; 80069; 81001; 82570; 82652; 82728; 83540; 83550; 83970; 84155; 85025

== ENCOUNTER 2019-01-08 12:45 | Outpatient (CLI) | payer MEDICARE, SELFPAY ==
[2019-01-08 12:45] VITALS: BP 144/62; PULSE 68; RESP 20; TEMP 36.9; O2SAT 95
[2019-01-08 13:30] VITALS: BP 102/68; PULSE 68; RESP 20; O2SAT 98
== END 2019-01-08 13:30 | disposition home or self-care (01) ==
LOC: INF 12:45
PROVIDERS: Visit Provider Internal Medicine Medical Oncology
DX: D50.9 Iron deficiency anemia, unspecified (principal); T45.4X5A Adverse effect of iron and its compounds, initial encounter
CPT/HCPCS: 96365; J1439

== ENCOUNTER 2019-01-15 12:46 | Outpatient (CLI) | payer MEDICARE, SELFPAY ==
[2019-01-15 12:54] VITALS: BP 161/78; PULSE 66; RESP 18; TEMP 36.4; O2SAT 96
[2019-01-15 13:24] VITALS: BP 159/71; PULSE 69; RESP 18; O2SAT 97
[2019-01-15 13:35] VITALS: BP 162/75; PULSE 62; RESP 18; O2SAT 96
== END 2019-01-15 13:35 | disposition home or self-care (01) ==
LOC: INF 12:46
PROVIDERS: Visit Provider Internal Medicine Medical Oncology
DX: D50.9 Iron deficiency anemia, unspecified (principal); T45.4X5A Adverse effect of iron and its compounds, initial encounter
CPT/HCPCS: 96365; J1439

== ENCOUNTER → 2019-01-25 14:48 | Outpatient (CLI) | payer MEDICARE, SELFPAY ==
[2019-01-25 14:50] LABS: Microscopic, Urine URINE MICROSCOPIC (MICROSCOPIC)
[2019-01-25 15:10] LABS: Appearance,Urine CLEAR (Clear); Bilirubin,Urine Negative (Negative); Blood, Urine Negative (Negative); Color,Urine YELLOW (Yellow); Glucose,Urine (UA) 1+ (Negative); Ketones,Urine Negative (Negative); Leukocyte Esterase,Urine Negative (Negative); Nitrate,Urine Negative (Negative); PH,Urine 5.5 (5.0-8.5); Protein,Urine 2+ (Negative); Specific Gravity, Urine >= 1.030 (1.005-1.030); Urobilinogen,Urine 0.2 EU/dl (0.2)
[2019-01-25 15:39] LABS: Bacteria,Urine 1+ /lpf; Squamous Epithelial Cell,Urine Occasional #/hpf (0-5); WBC,Urine Occasional #/hpf (0-3)
[2019-01-25 16:11] LABS: Albumin Level 3.4 gm/dL (3.4-5.0); Carbon Dioxide 21 mmol/L (21.0-32.0); Chloride 105 mmol/L (98-107); Estimated Glomerular Filt Rate 13 ml/min (>60); GFR (African American) 16 ML/MIN (>60); Glucose 223 mg/dL (74-106); Phosphorous 5.8 mg/dL (2.4-4.9); Sodium 131 mmol/L (136-145)
[2019-01-25 16:36] LABS: Blood Urea Nitrogen 78 mg/dL (7-18)
[2019-01-25 16:37] LABS: Creatinine,Serum 4.54 mg/dL (0.70-1.30)
[2019-01-25 16:38] LABS: Calcium 6.9 mg/dL (8.5-10.1)
== END ==
PROVIDERS: Visit Provider Internal Medicine Nephrology
DX: N18.5 Chronic kidney disease, stage 5 (principal)
CPT/HCPCS: 36415; 80069; 81001

== ENCOUNTER → 2019-02-22 08:56 | Outpatient (CLI) | payer MEDICARE, SELFPAY ==
--- NOTE | 2019-02-22 08:59 | XR_ITS ---
XR wrist LT min 3V CLINICAL INDICATION: ITS.REASON: left wrist pain ORDERING PHYSICIAN: Gen Villarreal MD PATIENT AGE: 68 years Comparison: None FINDINGS: There is mild osteopenia without acute fracture. Joint spaces and alignment are normal. There are some soft tissue vascular calcifications. IMPRESSION: Osteopenia. No acute process.
== END ==
PROVIDERS: PCP Family Medicine; Visit Provider Orthopaedic Surgery
DX: M25.532 Pain in left wrist (principal)
CPT/HCPCS: 73110

== ENCOUNTER → 2019-02-25 10:46 | Outpatient (CLI) | payer MEDICARE, SELFPAY ==
[2019-02-25 11:24] LABS: Basophils # 0.1 K/mm3 (0-0.2); Basophils % 1.5 % (0.1-2.0); Eosinophils # 0.2 K/mm3 (0.0-0.4); Eosinophils % 3.9 % (0.1-12.0); Lymphocytes # 0.9 K/mm3 (0.7-4.5); Lymphocytes % 15.7 % (10-50); Mean Corpuscular HGB Conc 29.8 g/dL (31.8-35.4); Mean Corpuscular Hemoglobin 29.1 pg (27.0-31.2); Mean Corpuscular Volume 97.6 fl (80-94); Mean Platelet Volume 8.6 fl (7.4-10.4); Monocytes # 0.3 K/mm3 (0.1-1.0); Monocytes % 5.1 % (1.7-9.3); Neutrophils # 4.3 K/mm3 (1.8-7.8); Neutrophils % 73.8 % (37.0-80.0); Platelet Count 313 K/mm3 (142-424); Red Blood Count 2.66 M/mm3 (4.60-6.20); Red Cell Distribution Width 15.9 % (11.5-17.5); White Blood Count 5.8 K/mm3 (4.8-10.8)
[2019-02-25 11:45] LABS: Hemoglobin 7.7 g/dL (14.1-18.0)
[2019-02-25 11:59] LABS: Anion Gap 21.1 mEq/L (5-15); Carbon Dioxide 20 mmol/L (21.0-32.0); Chloride 112 mmol/L (98-107); Estimated Glomerular Filt Rate 13 ml/min (>60); GFR (African American) 16 ML/MIN (>60); Glucose 111 mg/dL (74-106); Potassium 5.1 mmoL/L (3.5-5.1); Sodium 148 mmol/L (136-145)
[2019-02-25 12:07] LABS: Blood Urea Nitrogen 84 mg/dL (7-18); Creatinine,Serum 4.45 mg/dL (0.70-1.30)
[2019-02-25 12:18] LABS: Albumin Level 3.4 gm/dL (3.4-5.0); Anion Gap 20.1 mEq/L (5-15); Calcium 7.9 mg/dL (8.5-10.1); Carbon Dioxide 20 mmol/L (21.0-32.0); Chloride 112 mmol/L (98-107); Estimated Glomerular Filt Rate 13 ml/min (>60); Ferritin 358 ng/mL (8-388); GFR (African American) 16 ML/MIN (>60); Glucose 111 mg/dL (74-106); Iron 63 ug/dl (28-170); Phosphorous 5.5 mg/dL (2.4-4.9); Potassium 5.1 mmoL/L (3.5-5.1); Sodium 147 mmol/L (136-145)
[2019-02-25 12:21] LABS: Blood Urea Nitrogen 83 mg/dL (7-18); Creatinine,Serum 4.45 mg/dL (0.70-1.30)
[2019-02-26 08:17] LABS: Iron 65 ug/dL (38-169); UIBC 167 ug/dL (111-343)
[2019-02-26 16:28] LABS: Iron Saturation 28 % (15-55)
[2019-02-26 16:29] LABS: Parathyroid Hormone Intact 301 pg/mL (15-65); Vitamin D 25 Hydroxy 18.8 ng/mL (30.0-100.0)
== END ==
PROVIDERS: Internal Medicine Nephrology; Visit Provider Orthopaedic Surgery
DX: Z01.818 Encounter for other preprocedural examination (principal); N18.5 Chronic kidney disease, stage 5; D50.9 Iron deficiency anemia, unspecified; E11.9 Type 2 diabetes mellitus without complications; Z79.4 Long term (current) use of insulin
CPT/HCPCS: 36415; 80048; 80069; 82652; 82728; 83036; 83540; 83550; 83970; 85025

== ENCOUNTER → 2019-03-28 12:39 | Outpatient (CLI) | payer MEDICARE, SELFPAY ==
[2019-03-28 12:56] LABS: Basophils # 0.1 K/mm3 (0-0.2); Basophils % 1.2 % (0.1-2.0); Eosinophils # 0.3 K/mm3 (0.0-0.4); Hematocrit 25.7 % (42.0-52.0); Lymphocytes # 0.8 K/mm3 (0.7-4.5); Lymphocytes % 15.1 % (10-50); Mean Corpuscular HGB Conc 30.3 g/dL (31.8-35.4); Mean Corpuscular Hemoglobin 29.9 pg (27.0-31.2); Mean Corpuscular Volume 98.8 fl (80-94); Mean Platelet Volume 9.8 fl (7.4-10.4); Monocytes # 0.3 K/mm3 (0.1-1.0); Neutrophils % 73.6 % (37.0-80.0); Platelet Count 294 K/mm3 (142-424); Red Cell Distribution Width 15.2 % (11.5-17.5); White Blood Count 5.5 K/mm3 (4.8-10.8)
[2019-03-28 13:13] LABS: Hemoglobin 7.8 g/dL (14.1-18.0)
[2019-03-28 14:27] LABS: Ferritin 242 ng/mL (8-388)
[2019-03-29 08:51] LABS: Iron 43 ug/dL (38-169); UIBC 193 ug/dL (111-343)
[2019-03-29 17:10] LABS: Iron Saturation 18 % (15-55)
== END ==
PROVIDERS: Visit Provider Internal Medicine Medical Oncology
DX: D64.9 Anemia, unspecified (principal)
CPT/HCPCS: 36415; 82728; 83540; 83550; 85025

== ENCOUNTER → 2019-04-20 12:08 | Outpatient (CLI) | payer MEDICARE, SELFPAY ==
[2019-04-20 12:11] LABS: Microscopic, Urine URINE MICROSCOPIC (MICROSCOPIC)
[2019-04-20 12:28] LABS: Basophils % 0.9 % (0.1-2.0); Eosinophils # 0.2 K/mm3 (0.0-0.4); Eosinophils % 3.3 % (0.1-12.0); Hematocrit 27.2 % (42.0-52.0); Hemoglobin 8.7 g/dL (14.1-18.0); Lymphocytes # 0.8 K/mm3 (0.7-4.5); Lymphocytes % 16.2 % (10-50); Mean Corpuscular HGB Conc 32.1 g/dL (31.8-35.4); Mean Corpuscular Hemoglobin 30.6 pg (27.0-31.2); Mean Corpuscular Volume 95.3 fl (80-94); Mean Platelet Volume 8.3 fl (7.4-10.4); Monocytes # 0.2 K/mm3 (0.1-1.0); Monocytes % 4.9 % (1.7-9.3); Neutrophils # 3.7 K/mm3 (1.8-7.8); Neutrophils % 74.7 % (37.0-80.0); Platelet Count 282 K/mm3 (142-424); Red Blood Count 2.85 M/mm3 (4.60-6.20); Red Cell Distribution Width 14.1 % (11.5-17.5)
[2019-04-20 12:30] LABS: Appearance,Urine CLEAR (Clear); Bilirubin,Urine Negative (Negative); Blood, Urine Negative (Negative); Color,Urine YELLOW (Yellow); Glucose,Urine (UA) Negative (Negative); Ketones,Urine Negative (Negative); Leukocyte Esterase,Urine Negative (Negative); Nitrate,Urine Negative (Negative); Protein,Urine 2+ (Negative); Specific Gravity, Urine >= 1.030 (1.005-1.030); Urobilinogen,Urine 0.2 EU/dl (0.2)
[2019-04-20 12:55] LABS: Bacteria,Urine Trace /lpf; Hyaline Casts,Urine Occasional #/lpf (0); Squamous Epithelial Cell,Urine Occasional #/hpf (0-5); WBC,Urine Occasional #/hpf (0-3)
[2019-04-20 13:08] LABS: Albumin Level 3.7 gm/dL (3.4-5.0); Anion Gap 16.5 mEq/L (5-15); Blood Urea Nitrogen 73 mg/dL (7-18); Calcium 7.6 mg/dL (8.5-10.1); Carbon Dioxide 21 mmol/L (21.0-32.0); Chloride 110 mmol/L (98-107); Estimated Glomerular Filt Rate 13 ml/min (>60); GFR (African American) 16 ML/MIN (>60); Glucose 97 mg/dL (74-106); Phosphorous 5.7 mg/dL (2.4-4.9); Potassium 4.5 mmoL/L (3.5-5.1); Sodium 143 mmol/L (136-145)
[2019-04-20 17:25] LABS: Creatinine,Serum 4.42 mg/dL (0.70-1.30)
== END ==
PROVIDERS: Visit Provider Internal Medicine Nephrology
DX: N18.5 Chronic kidney disease, stage 5 (principal)
CPT/HCPCS: 36415; 80069; 81001; 85025

== ENCOUNTER 2019-05-06 11:17 | Outpatient (CLI) | payer MEDICARE, SELFPAY ==
[2019-05-06 11:25] VITALS: BP 179/78; PULSE 63; RESP 18; O2SAT 98
== END 2019-05-06 11:35 | disposition home or self-care (01) ==
LOC: INF 11:17
PROVIDERS: Visit Provider Internal Medicine Nephrology
DX: N18.4 Chronic kidney disease, stage 4 (severe) (principal); D63.1 Anemia in chronic kidney disease
CPT/HCPCS: 96372; J0885

== ENCOUNTER 2019-05-14 10:34 | Outpatient (CLI) | payer MEDICARE, SELFPAY ==
[2019-05-14 10:35] VITALS: BMI 22.9
[2019-05-14 11:04] LABS: Hemoglobin 8.9 g/dL (14.1-18.0)
[2019-05-14 11:13] LABS: Creatinine Clearance Estimated 15 mL/min (50-200); Estimated Glomerular Filt Rate 12 ml/min (>60); GFR (African American) 15 ML/MIN (>60); Potassium 5.5 mmoL/L (3.5-5.1)
[2019-05-14 11:19] LABS: Creatinine,Serum 4.66 mg/dL (0.70-1.30)
[2019-05-14 11:42] VITALS: BP 177/74; PULSE 58; RESP 18
== END 2019-05-14 11:50 | disposition home or self-care (01) ==
LOC: INF 10:34
PROVIDERS: PCP Family Medicine; Visit Provider Internal Medicine Nephrology
DX: N18.4 Chronic kidney disease, stage 4 (severe) (principal); D63.1 Anemia in chronic kidney disease
CPT/HCPCS: 36415; 82565; 84132; 85014; 85018; 96372; J0885

== ENCOUNTER 2019-05-21 10:32 | Outpatient (CLI) | payer MEDICARE, SELFPAY ==
[2019-05-21 10:34] VITALS: BMI 22.9
[2019-05-21 10:50] LABS: Hematocrit 29.3 % (42.0-52.0)
[2019-05-21 11:14] LABS: Creatinine Clearance Estimated 16 mL/min (50-200); Estimated Glomerular Filt Rate 14 ml/min (>60); GFR (African American) 16 ML/MIN (>60); Potassium 4.8 mmoL/L (3.5-5.1)
[2019-05-21 11:16] LABS: Creatinine,Serum 4.33 mg/dL (0.70-1.30)
[2019-05-21 11:27] VITALS: BP 171/78; PULSE 59; RESP 18; TEMP 36.7; O2SAT 98
[2019-05-21 12:00] VITALS: BP 167/71; PULSE 58; RESP 20; O2SAT 99
== END 2019-05-21 12:00 | disposition home or self-care (01) ==
LOC: INF 10:32
PROVIDERS: Visit Provider Internal Medicine Medical Oncology
DX: N18.4 Chronic kidney disease, stage 4 (severe) (principal); D63.1 Anemia in chronic kidney disease
CPT/HCPCS: 36415; 82565; 84132; 85014; 85018; 96372; J0885

== ENCOUNTER 2019-05-28 10:18 | Outpatient (CLI) | payer MEDICARE, SELFPAY ==
[2019-05-28 10:20] VITALS: BMI 22.9
[2019-05-28 10:45] VITALS: BP 186/77; PULSE 62; RESP 20; TEMP 36.9; O2SAT 95
[2019-05-28 10:47] LABS: Hematocrit 34.7 % (42.0-52.0); Hemoglobin 10.2 g/dL (14.1-18.0)
[2019-05-28 10:58] LABS: Creatinine Clearance Estimated 15 mL/min (50-200); Estimated Glomerular Filt Rate 12 ml/min (>60); GFR (African American) 15 ML/MIN (>60); Potassium 4.8 mmoL/L (3.5-5.1)
[2019-05-28 11:06] LABS: Creatinine,Serum 4.69 mg/dL (0.70-1.30)
[2019-05-28 11:16] LABS: Ferritin 88 ng/mL (8-388)
[2019-05-28 15:20] VITALS: BP 166/74; PULSE 72; RESP 20; TEMP 36.9; O2SAT 95
[2019-05-29 11:24] LABS: Iron 38 ug/dL (38-169); UIBC 227 ug/dL (111-343)
[2019-05-29 16:46] LABS: Iron Saturation 14 % (15-55)
== END 2019-05-28 15:20 | disposition home or self-care (01) ==
LOC: INF 10:18
PROVIDERS: Visit Provider Internal Medicine Medical Oncology
DX: N18.4 Chronic kidney disease, stage 4 (severe) (principal); D63.1 Anemia in chronic kidney disease
CPT/HCPCS: 82565; 82728; 83540; 83550; 84132; 85014; 85018; 96372; J0885

== ENCOUNTER 2019-06-04 10:37 | Outpatient (CLI) | payer MEDICARE, SELFPAY ==
[2019-06-04 10:39] VITALS: BMI 23.1
[2019-06-04 10:53] VITALS: BP 179/69; PULSE 64; RESP 22; TEMP 36.6; O2SAT 96
[2019-06-04 11:37] LABS: Hematocrit 36.9 % (42.0-52.0); Hemoglobin 10.8 g/dL (14.1-18.0)
[2019-06-04 11:46] LABS: Creatinine Clearance Estimated 16 mL/min (50-200); Estimated Glomerular Filt Rate 13 ml/min (>60); GFR (African American) 16 ML/MIN (>60)
[2019-06-04 11:52] LABS: Creatinine,Serum 4.43 mg/dL (0.70-1.30)
[2019-06-04 11:54] VITALS: BP 179/69; PULSE 64; RESP 22; TEMP 36.6; O2SAT 96
[2019-06-04 11:56] VITALS: BP 179/69; PULSE 64; RESP 22; TEMP 36.6; O2SAT 96
== END 2019-06-04 11:54 | disposition home or self-care (01) ==
LOC: INF 10:37
PROVIDERS: Visit Provider Internal Medicine Nephrology
DX: N18.5 Chronic kidney disease, stage 5 (principal); D63.1 Anemia in chronic kidney disease
CPT/HCPCS: 36415; 82565; 85014; 85018; 96372; J0885

== ENCOUNTER 2019-06-11 10:13 | Outpatient (CLI) | payer MEDICARE, SELFPAY ==
[2019-06-11 10:17] VITALS: BMI 22.9
[2019-06-11 10:32] LABS: Hematocrit 35.9 % (42.0-52.0); Hemoglobin 10.5 g/dL (14.1-18.0)
[2019-06-11 10:39] LABS: Creatinine Clearance Estimated 14 mL/min (50-200); Estimated Glomerular Filt Rate 12 ml/min (>60); GFR (African American) 15 ML/MIN (>60); Potassium 4.4 mmoL/L (3.5-5.1)
[2019-06-11 10:43] LABS: Creatinine,Serum 4.81 mg/dL (0.70-1.30)
[2019-06-11 10:56] VITALS: BP 170/74; PULSE 69; RESP 18; TEMP 36.6; O2SAT 97
[2019-06-11 11:15] VITALS: BP 168/79; PULSE 72; RESP 18; TEMP 36.6; O2SAT 97
== END 2019-06-11 11:15 | disposition home or self-care (01) ==
LOC: INF 10:13
PROVIDERS: Visit Provider Internal Medicine Nephrology
DX: N18.4 Chronic kidney disease, stage 4 (severe) (principal); D63.1 Anemia in chronic kidney disease
CPT/HCPCS: 36415; 82565; 84132; 85014; 85018; 96372; J0885

== ENCOUNTER 2019-06-19 10:20 | Outpatient (CLI) | payer MEDICARE, SELFPAY ==
[2019-06-19 10:25] VITALS: BMI 22.9
[2019-06-19 11:04] LABS: Hematocrit 40.2 % (42.0-52.0); Hemoglobin 11.9 g/dL (14.1-18.0)
[2019-06-19 11:10] LABS: Creatinine Clearance Estimated 15 mL/min (50-200); Estimated Glomerular Filt Rate 13 ml/min (>60); GFR (African American) 16 ML/MIN (>60); Potassium 4.5 mmoL/L (3.5-5.1)
[2019-06-19 11:16] LABS: Creatinine,Serum 4.54 mg/dL (0.70-1.30)
--- NOTE | 2019-06-19 11:21 | PC.NURSE ---
lab report returned, hgb-11.9/hct-40.2. standing order from md dictates if hgb>11.0, to hold procrit and have pt return in 1 mo for the next lab check and possible injection. discussed poc with pt, pt ok to be d/c'd home.
[2019-06-19 11:39] VITALS: BP 175/82; PULSE 65; RESP 18; TEMP 36.6; O2SAT 98
== END 2019-06-19 11:39 | disposition home or self-care (01) ==
LOC: INF 10:20
PROVIDERS: Visit Provider Internal Medicine Nephrology
DX: N18.4 Chronic kidney disease, stage 4 (severe) (principal); D63.1 Anemia in chronic kidney disease
CPT/HCPCS: 82565; 84132; 85014; 85018

== ENCOUNTER → 2019-06-26 13:14 | Outpatient (CLI) | payer MEDICARE, SELFPAY ==
[2019-06-26 13:22] LABS: Microscopic, Urine URINE MICROSCOPIC (MICROSCOPIC)
[2019-06-26 13:40] LABS: Appearance,Urine CLEAR (Clear); Bilirubin,Urine Negative (Negative); Blood, Urine 1+ (Negative); Color,Urine YELLOW (Yellow); Glucose,Urine (UA) Negative (Negative); Ketones,Urine Negative (Negative); Leukocyte Esterase,Urine Negative (Negative); Nitrate,Urine Negative (Negative); PH,Urine 5.5 (5.0-8.5); Protein,Urine 3+ (Negative); Specific Gravity, Urine >= 1.030 (1.005-1.030); Urobilinogen,Urine 0.2 EU/dl (0.2)
[2019-06-26 14:07] LABS: Bacteria,Urine Trace /lpf; RBC,Urine Occasional #/hpf (0-3); Squamous Epithelial Cell,Urine Occasional #/hpf (0-5); WBC,Urine Occasional #/hpf (0-3)
[2019-06-26 14:16] LABS: Basophils # 0.1 K/mm3 (0-0.2); Basophils % 1.2 % (0.1-2.0); Eosinophils # 0.2 K/mm3 (0.0-0.4); Eosinophils % 2.4 % (0.1-12.0); Hematocrit 37.7 % (42.0-52.0); Hemoglobin 11.7 g/dL (14.1-18.0); Lymphocytes # 0.9 K/mm3 (0.7-4.5); Lymphocytes % 13.8 % (10-50); Mean Corpuscular HGB Conc 31.1 g/dL (31.8-35.4); Mean Corpuscular Hemoglobin 28.9 pg (27.0-31.2); Mean Platelet Volume 8.1 fl (7.4-10.4); Monocytes # 0.3 K/mm3 (0.1-1.0); Monocytes % 4.7 % (1.7-9.3); Neutrophils % 77.9 % (37.0-80.0); Platelet Count 280 K/mm3 (142-424); Red Blood Count 4.05 M/mm3 (4.60-6.20); White Blood Count 6.4 K/mm3 (4.8-10.8)
[2019-06-26 14:46] LABS: Albumin Level 3.4 gm/dL (3.4-5.0); Anion Gap 16.5 mEq/L (5-15); Calcium 7.3 mg/dL (8.5-10.1); Carbon Dioxide 21 mmol/L (21.0-32.0); Chloride 112 mmol/L (98-107); Estimated Glomerular Filt Rate 15 ml/min (>60); Ferritin 111 ng/mL (8-388); GFR (African American) 18 ML/MIN (>60); Glucose 69 mg/dL (74-106); Phosphorous 5.6 mg/dL (2.4-4.9); Potassium 4.5 mmoL/L (3.5-5.1); Sodium 145 mmol/L (136-145)
[2019-06-26 15:04] LABS: Blood Urea Nitrogen 83 mg/dL (7-18); Creatinine,Serum 4.07 mg/dL (0.70-1.30)
[2019-06-27 08:23] LABS: Iron 46 ug/dL (38-169); UIBC 221 ug/dL (111-343)
[2019-06-27 10:56] LABS: Iron Saturation 17 % (15-55); Vitamin D 25 Hydroxy 26.2 ng/mL (30.0-100.0)
[2019-06-27 16:07] LABS: Parathyroid Hormone Intact 240 pg/mL (15-65)
== END ==
PROVIDERS: Visit Provider Internal Medicine Nephrology
DX: D64.9 Anemia, unspecified (principal); N25.81 Secondary hyperparathyroidism of renal origin; N18.5 Chronic kidney disease, stage 5
CPT/HCPCS: 36415; 80069; 81001; 82652; 82728; 83540; 83550; 83970; 85025

== ENCOUNTER 2020-01-20 14:32 | Emergency (ER) | payer MEDICARE, SELFPAY ==
[2020-01-20 14:32] VITALS: BP 149/91; PULSE 79; RESP 24; TEMP 36.4; O2SAT 99; BMI 22.8
[2020-01-20 14:37] VITALS: BMI 22.9
--- NOTE | 2020-01-20 14:38 | XR_ITS ---
PROCEDURE: XR CHEST PORTABLE Patient Age:69Y CLINICAL HISTORY: Altered mental status. COMPARISON: Previous chest film 12/07/2018 and July 04 FINDINGS: . ET tube is in place and satisfactory position with tip at the level of the head of clavicles but the tip of the ET tube is 5 cm above the sanjuana. The left lung appears more hyperexpanded than the right but left lung of all expanded clear. The left CP angle is not and inferior left lung base not included on this portable study. Right chest. Previous pneumonia in 2019 involving mid inferior right chest since. Would continue see some chronic coarsening markings towards the right lung base which infiltrate most likely reflects post inflammatory changes here. Doubt but cannot exclude minimal interstitial currently. Of there is persistent vague density towards medial right base, and right cardiophrenic angle reflects chronic changes or possibly some loculated fluid. Generous right infrahilar region noted periods although some of this reflects possibly previous pleural fluid a could not exclude underlying pathology here in a follow-up PA and lateral chest with follow-up CT chest with contrast recommended when feasible. ekg monitor leads are in place.. Heart normal size and appears smaller than previous 2019 CXR studies but pulmonary vascularity upper normal this study.. A generous right tim noted but somewhat similar appearance previously but warrants a PA and lateral CXR or follow-up CT chest IMPRESSION: 1....ET tube satisfactory position 2...Right lung. .. Scarring and postinflammatory changes towards right lung base. Coarsening markings here.. .. Prominent Right Hilar Shadow. May reflect overlapping structures vs possible loculated fluid behind right tim but in either case would recommend follow-up PA and lateral chest when feasible, or preferably CT chest with contrast. 3..Left lung. Clear, hyperexpanded. Dictated by: Cyril López MD 01/20/2020 17:30 Electronically signed by Cyril López MD in [place] 01/20/2020 17:30
--- NOTE | 2020-01-20 14:58 | ECG_ITS ---
APPROVED REPORT Exam: Resting ECG HR:77 bpm ECG Measurements Heart Rate 77 AXES HI 170 P 61 QRSd 98 QRS -66 QT 514 T 264 QTc 581 <Conclusion> Normal sinus rhythm Possible Left atrial enlargement Left axis deviation,LAHB Incomplete right bundle branch block ST & T wave abnormality, consider inferolateral ischemia Prolonged QT Abnormal ECG Electronically signed by : Walter Dominguez, 01/21/2020 08:40:34
[2020-01-20 15:05] LABS: Microscopic, Urine URINE MICROSCOPIC (MICROSCOPIC)
[2020-01-20 15:06] LABS: Basophils # 0.2 K/mm3 (0-0.2); Basophils % 1.7 % (0.1-2.0); Eosinophils # 0.3 K/mm3 (0.0-0.4); Eosinophils % 3.6 % (0.1-12.0); Hematocrit 40.1 % (42.0-52.0); Hemoglobin 13.3 g/dL (14.1-18.0); Lymphocytes # 2.2 K/mm3 (0.7-4.5); Lymphocytes % 23.8 % (10-50); Mean Corpuscular HGB Conc 33.1 g/dL (31.8-35.4); Mean Corpuscular Hemoglobin 29.8 pg (27.0-31.2); Mean Corpuscular Volume 90.1 fl (80-94); Mean Platelet Volume 8.1 fl (7.4-10.4); Monocytes # 0.4 K/mm3 (0.1-1.0); Monocytes % 4.5 % (1.7-9.3); Neutrophils # 6.1 K/mm3 (1.8-7.8); Neutrophils % 66.4 % (37.0-80.0); Platelet Count 243 K/mm3 (142-424); Red Blood Count 4.45 M/mm3 (4.60-6.20); Red Cell Distribution Width 14.9 % (11.5-17.5); White Blood Count 9.2 K/mm3 (4.8-10.8)
[2020-01-20 15:09] VITALS: BP 102/55; PULSE 69; RESP 20; O2SAT 100
[2020-01-20 15:09] LABS: Appearance,Urine SL CLOUDY (Clear); Bilirubin,Urine Negative (Negative); Blood, Urine 2+ (Negative); Color,Urine YELLOW (Yellow); Glucose,Urine (UA) 3+ (Negative); Ketones,Urine Negative (Negative); Leukocyte Esterase,Urine Negative (Negative); Nitrate,Urine Negative (Negative); PH,Urine 6.5 (5.0-8.5); Protein,Urine 3+ (Negative); Urobilinogen,Urine 0.2 EU/dl (0.2)
[2020-01-20 15:15] LABS: Blood Urea Nitrogen 75 mg/dl (9-20); Calcium 7.2 mg/dl (8.4-10.2); Carbon Dioxide 20 mmol/L (22.0-30.0); Chloride 101 mmol/L (98-107); Creatinine Clearance Estimated 12 mL/min (50-200); Estimated Glomerular Filt Rate 9 ml/min (>60); GFR (African American) 11 ML/MIN (>60); Glucose 261 mg/dl (74-100); Sodium 137 mmol/L (136-145)
[2020-01-20 15:20] LABS: Barbiturates Screen,Urine Negative ng/ml (<200); Benzodiazepines Screen,Urine Negative ng/ml (<200)
[2020-01-20 15:21] LABS: Amphetamine/Metha Screen,Urine Negative ng/ml (<1000); Cannabinoid Screen,Urine Positive ng/ml (<50)
[2020-01-20 15:22] LABS: Cocaine Screen,Urine Negative ng/ml (<300)
[2020-01-20 15:23] LABS: Methadone Screen,Urine Negative ng/ml (<300); Opiate Screen,Urine Negative ng/ml (<300)
[2020-01-20 15:24] LABS: Phencyclidine Screen,Urine Negative ng/ml (<25)
[2020-01-20 15:26] LABS: Bacteria,Urine 2+ /lpf
[2020-01-20 15:27] LABS: Sperm,Urine 3+ /lpf
[2020-01-20 15:28] LABS: Troponin I 0.05 ng/ml (0.00-0.034)
--- NOTE | 2020-01-20 15:57 | PC.NURSE ---
called for possible transfer Dr Ware speaking with Dr Villela.
--- NOTE | 2020-01-20 16:00 | PC.NURSE ---
Dr Ware spoke with pt healthcare advocate.
[2020-01-20 16:05] LABS: ABG Base Excess -5.8 mmol/L (-2.4-2.3); ABG Oxygen Saturation 100 % (90-100); ABG PCO2 46.2 mmhg (35.0-45.0); ABG PH 7.28 mmol/L (7.35-7.45); ABG TCO2 22.4 mmhg (23-27)
[2020-01-20 16:09] LABS: Allen's Test Patient Unable; Oxygen 100% %; PEEP 5; Tidal Volume 400; Vent Rate 14
[2020-01-20 16:10] LABS: Source Left Radial
--- NOTE | 2020-01-20 16:20 | PC.NURSE ---
[facility] have both declined flight
--- NOTE | 2020-01-20 16:24 | PC.NURSE ---
1430-patient arrived 1433- vitals B/P 178/83, P 83, RR 22 O2 100% 80mg of Propofol given per Dr. Ware 1438-20 gauge in the left hand obtained by MONTSERRAT Pack 1441- Propofol 40mg given per MONTSERRAT Calov 1443- Succs 100mg given per Umesh,RN 1444- intubation completed by Dr. Ware, 7.5 ET with 24 at the lip 1445- Chest xray performed for tube placement. 1447- V/S check BP149/91 o2 99% RR 22 Temp 97.6 1448-Propofol drip started per MONTSERRAT Pack 1448 16 fr quintanilla placed per MONTSERRAT Calvo 1451-Patient placed on vent. 1452-MONTSERRAT Pack increased Propofol drip from 50-60. 1453- Sodium Chloride 0.9% started 1455- Rocc 50mg given per Montserrat Calvo 1456-EKG performed by Rhonda,EMT 1459-Patient suctioned per RT. VS BP135/73 P 76 RR 24 O2 100% 1624- Propofol increased to 62. 1648- Report called to Charity with .
[2020-01-20 16:27] LABS: Adenovirus,PCR Not Detected (NotDetected); Bordetella Pertussis Not Detected (NotDetected); Chlamydophila Pneumoniae, PCR Not Detected (NotDetected); Coronavirus 19, PCR Not Detected (NotDetected); Coronavirus 229E Not Detected (NotDetected); Coronavirus NL63 Not Detected (NotDetected); Coronavirus OC43 Not Detected (NotDetected); Coronovirus HKU1,PCR Not Detected (NotDetected); Human Metapneumovirus Not Detected (NotDetected); Influenza A, PCR Not Detected (NotDetected); Influenza AH1, 2009 Not Detected (NotDetected); Influenza AH1, PCR Not Detected (NotDetected); Influenza AH3,PCR Not Detected (NotDetected); Influenza B, PCR Not Detected (NotDetected); Mycoplasma Pneumoniae, PCR Not Detected (NotDected); Parainfluenza 1, PCR Not Detected (NotDetected); Parainfluenza 2, PCR Not Detected (NotDetected); Parainfluenza 3, PCR Not Detected (NotDetected); Parainfluenza 4, PCR Not Detected (NotDetected); Respiratory Syncytial Virus Not Detected (NotDetected); Rhinovirus/Enterovirus Not Detected (NotDetected)
--- NOTE | 2020-01-20 16:35 | PC.NURSE ---
[employer] accepting flight ETA approx 20 min.
--- NOTE | 2020-01-20 16:36 | HMH.EDAMS ---
ED Disposition Clinical Impression: Altered mental status, Delirium due to general medical condition, Sepsis, COVID-19, Respiratory failure, Renal failure (ARF), acute on chronic Disposition: Xfer Short-Term Hosp Condition on Discharge: Good Instructions: DI for Altered Mental Status Additional Instructions: Spoke to pulmonology at and they accepted the patient patient will be transferred to [facility] floor. Referrals: Daysi Alcaraz MD [Primary Care Provider] - - Critical Care Critical Care Time: Yes (Due to intubation and managing patient post intubation) Attestation: On 01/20/20, the high probability of a clinically significant, sudden or life threatening deterioration of the following system(s) required my full and direct attention, intervention and personal management. The time I documented below is in addition to time spent performing reported procedures but includes the following listed in this critical care notation. Total Critical Care Time: 75 Vital system(s) involved:: Central Nervous System, Metabolic Failure, Respiratory Failure, Renal Failure, Shock (Hemorrhage) My critical care processes included: Assessment & monitoring of V/S, Initial and Re-exams, Data Review/Interpretation, Coordinating Care, Medication Orders and management, Documentation Medical Decision Making - Medical Records Medical records reviewed: Yes: I reviewed the patient's medical records. - Ernesto Inquiry Pt receiving controlled substance: No Vital Signs: 01/20/20 14:32 01/20/20 15:09 Temperature 97.6 F Temperature Source Rectal Pulse Rate [Left Radial] 79 Pulse Rate [Right Radial] 69 Respiratory Rate 24 20 Blood Pressure [Left Arm] 149/91 H Blood Pressure [Left Radial Artery] 102/55 L Blood Pressure Mean [Left Arm] 110 Blood Pressure Mean [Left Radial Artery] 70 Blood Pressure Source [Left Arm] Automatic Cuff Blood Pressure Source [Left Radial Artery] Automatic Cuff Blood Pressure Position [Left Arm] Sitting Blood Pressure Position [Left Radial Artery] Supine 02 Sat by Pulse Oximetry 99 100 Oxygen Delivery Method Room Air Mechanical Ventilation - Lab Data Lab results reviewed: Yes: I reviewed the patient's lab results. Lab Results 01/20/20 14:40: WBC 9.2, RBC 4.45 L, Hgb 13.3 L, Hct 40.1 L, MCV 90.1, MCH 29.8, MCHC 33.1, RDW 14.9, Plt Count 243, MPV 8.1, Neut % (Auto) 66.4, Lymph % (Auto) 23.8, [place] % (Auto) 4.5, Eos % (Auto) 3.6, Baso % (Auto) 1.7, Neut # (Auto) 6.1, Lymph # (Auto) 2.2, [place] # (Auto) 0.4, Eos # (Auto) 0.3, Baso # (Auto) 0.2 01/20/20 14:40: Sodium 137, Potassium 4.0, Chloride 101, Carbon Dioxide 20 L, Anion Gap 20.0 H, BUN 75 H, Creatinine 5.90 H, Estimated Creat Clear 12, Estimated GFR 9 L*, Est GFR ( Amer) 11 L*, Glucose 261 H, Calcium 7.2 L, Troponin I 0.05 H 01/20/20 14:59: Urine Color Yellow, Urine Appearance Sl cloudy, Urine pH 6.5, Ur Specific [place] 1.020, Urine Protein 3+, Urine Glucose (UA) 3+, Urine Ketones Negative, Urine Blood 2+, Urine Nitrate Negative, Urine Bilirubin Negative, Urine Urobilinogen 0.2, Ur Leukocyte Esterase Negative, Urine RBC 10-20, Urine WBC 10-20, Ur Squamous Epith Cells 5-10, Urine Bacteria 2+, Urine Sperm 3+ 01/20/20 14:59: Urine Opiates Screen Negative, Urine Methadone Screen Negative, Ur Barbituates Screen Negative, Ur Phencyclidine Scrn Negative, Ur Amphetamines Screen Negative, U Benzodiazepines Scrn Negative, Urine Cocaine Screen Negative, U Marijuana (THC) Screen Positive H 01/20/20 15:55: Specimen Source Left radial, O2 % 100%, ABG pH 7.28 L, ABG pCO2 46.2 H, ABG pO2 518.0 H, ABG HCO3 21.0 L, ABG Total CO2 22.4 L, ABG O2 Saturation 100, ABG Base Excess -5.8 L, Julius Test Patient unable, Vent Rate 14, Tidal Volume 400, PEEP 5 Result diagrams: 01/20/20 14:40 01/20/20 14:40 Orders (Tests/Meds): ED MEDICATIONS Generic Name Dose Route Start Last Admin Trade Name Freq PRN Reason Stop Dose Admin Sodium Chloride 3 ml 01/20/20 15:
--- NOTE | 2020-01-20 16:55 | PC.NURSE ---
Report called to MONTSERRAT Nash at .
[2020-01-20 16:57] VITALS: O2SAT 90
[2020-01-20 17:15] VITALS: BP 99/56; PULSE 63; RESP 20; O2SAT 92
[2020-01-20 17:55] VITALS: BP 99/56; PULSE 63; RESP 20; TEMP 36.4; O2SAT 92
== END 2020-01-20 17:57 | disposition short-term general hospital (02) ==
PROVIDERS: Emergency Provider Family Medicine; PCP Family Medicine
DX: J96.90 Respiratory failure, unspecified, unspecified whether with hypoxia or hypercapnia (principal); U07.1 COVID-19; N17.9 Acute kidney failure, unspecified; F05 Delirium due to known physiological condition; A41.9 Sepsis, unspecified organism; J44.9 Chronic obstructive pulmonary disease, unspecified; I25.2 Old myocardial infarction; E78.5 Hyperlipidemia, unspecified; I10 Essential (primary) hypertension; Z79.899 Other long term (current) drug therapy
CPT/HCPCS: 31500; 71045; 80048; 80305; 81001; 82803; 84484; 85025; 87070; 87077; 87086; 87186; 87205; 87581; 87633; 87798; 93005; 96365; 96367; 96375; 99285; J0330

== ENCOUNTER 2020-05-31 21:53 | Emergency (ER) | payer MEDICARE, SELFPAY ==
[2020-05-31 21:57] VITALS: BP 212/143; PULSE 74; RESP 30; TEMP 37.3; O2SAT 79; BMI 26.6
[2020-05-31 21:58] LABS: ABG Base Excess -15.9 mmol/L (-2.4-2.3); ABG HCO3 9.1 mmhg (22.0-26.0); ABG Oxygen Saturation 99 % (90-100); ABG PH 7.39 mmol/L (7.35-7.45); ABG PO2 163.6 mmhg (80-100); ABG TCO2 9.6 mmhg (23-27)
--- NOTE | 2020-05-31 22:00 | PC.NURSE ---
on pt arrival this nurse asked pt why he quit taking all of his medication and quit going to dialysis and the pt stated because im tired and dont want to anymore. when asked if he had any advanced directives the pt stated i dont want anything done. this nurse brought in the hospital DNR paper and went over it with the pt. pt is alert and oriented x4 and understood everything that was being asked and discussed with him. MONTSERRAT Paulson were also at bedside during this conversation.
[2020-05-31 22:05] VITALS: BMI 26.6
--- NOTE | 2020-05-31 22:05 | XR_ITS ---
PROCEDURE: XR CHEST PORTABLE CLINICAL HISTORY: SOB Shortness of breath COMPARISON: CT [facility] CT CHEST W/O CONTRAST from 03/01/2016 CR [id number] XR chest portable from 12/07/2018 CR XR CHEST 2V from 07/04/2019 CR XR CHEST PORTABLE from 01/20/2020 FINDINGS: There is mild cardiomegaly without failure. There is a small right pleural effusion with patchy density in the right lower lobe which may be due to atelectasis or infiltrate. No acute bony abnormalities. IMPRESSION: Cardiomegaly with right-sided pleural effusion with atelectasis or infiltrate in the right lung base. Dictated by: Juilus He MD 06/01/2020 05:58 Julius He MD in [place] 06/01/2020 05:58
--- NOTE | 2020-05-31 22:05 | ECG_ITS ---
APPROVED REPORT Exam: Resting ECG HR:96 bpm ECG Measurements Heart Rate 96 AXES QRSd 88 QRS 260 QT 460 T 71 QTc 581 <Conclusion> Accelerated Junctional rhythm Right superior axis deviation Nonspecific ST and T wave abnormality Prolonged QT Abnormal ECG Electronically signed by : Gerry Franklin, 06/01/2020 06:54:52
--- NOTE | 2020-05-31 22:06 | PC.NURSE ---
Pt refused catheter at this time
--- NOTE | 2020-05-31 22:13 | PC.NURSE ---
lovenox dose per El in Pharmacy
[2020-05-31 22:16] LABS: Basophils # 0.1 K/mm3 (0-0.2); Basophils % 0.6 % (0.1-2.0); Eosinophils # 0.1 K/mm3 (0.0-0.4); Hematocrit 32.9 % (42.0-52.0); Hemoglobin 10.2 g/dL (14.1-18.0); Lymphocytes # 0.9 K/mm3 (0.7-4.5); Lymphocytes % 9.8 % (10-50); Mean Corpuscular HGB Conc 31.1 g/dL (31.8-35.4); Mean Corpuscular Hemoglobin 30.6 pg (27.0-31.2); Mean Corpuscular Volume 98.3 fl (80-94); Mean Platelet Volume 8.7 fl (7.4-10.4); Monocytes # 0.6 K/mm3 (0.1-1.0); Neutrophils # 7.8 K/mm3 (1.8-7.8); Neutrophils % 82.7 % (37.0-80.0); Platelet Count 301 K/mm3 (142-424); Red Blood Count 3.35 M/mm3 (4.60-6.20); Red Cell Distribution Width 15.6 % (11.5-17.5); White Blood Count 9.4 K/mm3 (4.8-10.8)
[2020-05-31 22:17] LABS: Chloride 110 mmol/L (98-107)
[2020-05-31 22:18] LABS: Potassium 4.9 mmoL/L (3.5-5.1); Sodium 142 mmol/L (136-145)
--- NOTE | 2020-05-31 22:18 | HMH.EDSOB ---
ED Disposition Clinical Impression: Elevated troponin, Hypertensive urgency, Elevated brain natriuretic peptide (BNP) level, COVID-19 virus IgG antibody detected Hypothyroidism Qualifiers: Hypothyroidism type: acquired Qualified Code(s): E03.9 - Hypothyroidism, unspecified Diabetes mellitus Qualifiers: Diabetes mellitus type: type 2 Diabetes mellitus prison insulin use: unspecified prison insulin use status Diabetes mellitus complication status: with kidney complications Diabetes mellitus complication detail: with chronic kidney disease Chronic kidney disease stage: on chronic dialysis Qualified Code(s): E11.22 - Type 2 diabetes mellitus with diabetic chronic kidney disease; N18.6 - End stage renal disease; Z99.2 - Dependence on renal dialysis Renal failure (ARF), acute on chronic Qualifiers: Acute renal failure type: unspecified Chronic kidney disease stage: on chronic dialysis Qualified Code(s): N17.9 - Acute kidney failure, unspecified; N18.9 - Chronic kidney disease, unspecified; Z99.2 - Dependence on renal dialysis Anemia Qualifiers: Anemia type: unspecified type Qualified Code(s): D64.9 - Anemia, unspecified Disposition: Xfer Short-Term Hosp Condition on Discharge: Fair Referrals: Gerry Albarado MD [Primary Care Provider] - - Critical Care Critical Care Time: Yes Attestation: On 05/31/20, the high probability of a clinically significant, sudden or life threatening deterioration of the following system(s) required my full and direct attention, intervention and personal management. The time I documented below is in addition to time spent performing reported procedures but includes the following listed in this critical care notation. Total Critical Care Time: 90 Vital system(s) involved:: Renal Failure My critical care processes included: Assessment & monitoring of V/S, Initial and Re-exams, Data Review/Interpretation, Medication Orders and management, Documentation Medical Decision Making - Medical Records Medical records reviewed: Yes: I reviewed the patient's medical records. - Ernetso Inquiry Pt receiving controlled substance: No Vital Signs: 05/31/20 21:57 05/31/20 22:24 05/31/20 22:30 Temperature 99.1 F Temperature Source Rectal Pulse Rate [Right] 74 90 85 Respiratory Rate 30 H 20 17 Blood Pressure [Left Arm] 212/143 H 190/97 H 167/82 H Blood Pressure Mean [Left Arm] 166 128 110 Blood Pressure Source [Left Arm] Automatic Cuff Automatic Cuff Automatic Cuff Blood Pressure Position [Left Arm] Supine Sitting Supine 02 Sat by Pulse Oximetry 79 L 98 98 Oxygen Delivery Method Non-Rebreather Vapotherm Vapotherm Oxygen Flow Rate (LPM) 15 05/31/20 22:52 05/31/20 23:00 05/31/20 23:30 Temperature Temperature Source Pulse Rate [Right] 85 83 Respiratory Rate 17 17 Blood Pressure [Left Arm] 175/91 H 166/85 H Blood Pressure Mean [Left Arm] 119 112 Blood Pressure Source [Left Arm] Automatic Cuff Automatic Cuff Blood Pressure Position [Left Arm] Supine Supine 02 Sat by Pulse Oximetry 98 98 Oxygen Delivery Method Vapotherm Vapotherm Vapotherm Oxygen Flow Rate (LPM) 20 - Lab Data Lab results reviewed: Yes: I reviewed the patient's lab results. Lab Results 05/31/20 21:57: Specimen Source r/r, O2 % 100, ABG pH 7.39, ABG pCO2 15.5 L, ABG pO2 163.6 H, ABG HCO3 9.1 L, ABG Total CO2 9.6 L, ABG O2 Saturation 99, ABG Base Excess -15.9 L, Julius Test y 05/31/20 22:00: WBC 9.4, RBC 3.35 L, Hgb 10.2 L, Hct 32.9 L, MCV 98.3 H, MCH 30.6, MCHC 31.1 L, RDW 15.6, Plt Count 301, MPV 8.7, Neut % (Auto) 82.7 H, Lymph % (Auto) 9.8 L, [place] % (Auto) 6.0, Eos % (Auto) 1.0, Baso % (Auto) 0.6, Neut # (Auto) 7.8, Lymph # (Auto) 0.9, [place] # (Auto) 0.6, Eos # (Auto) 0.1, Baso # (Auto) 0.1 05/31/20 22:00: Sodium 142, Potassium 4.9, Chloride 110 H, Carbon Dioxide 12 L, Anion Gap 24.9 H, BUN 118 H*, Creatinine 7.90 H, Estimated Creat Clear 9, Estimated GFR 7 L*, Est GFR ( Amer) 8 L*, Glucose 272 H, Calcium 6.5
[2020-05-31 22:20] LABS: Alanine Aminotransferase 23 U/L (12-78); Alkaline Phosphatase 169 U/L (38-126); Anion Gap 24.9 mEq/L (5-15); Aspartate Amino Transferase 26 U/L (17-59); Bilirubin,Total 0.6 mg/dl (0.2-1.3); Carbon Dioxide 12 mmol/L (22.0-30.0); Creatinine Clearance Estimated 9 mL/min (50-200); Estimated Glomerular Filt Rate 7 ml/min (>60); GFR (African American) 8 ML/MIN (>60)
[2020-05-31 22:21] LABS: Albumin Level 3.6 g/dl (3.5-5.0); Albumin/Globulin Ratio 1.2 (1.1-1.8); Globulin 2.9 g/dL (1.3-3.2); Glucose 272 mg/dl (74-100); Total Protein,Serum 6.5 g/dl (6.3-8.2)
[2020-05-31 22:24] VITALS: BP 190/97; PULSE 90; RESP 20; O2SAT 98
[2020-05-31 22:29] LABS: Lactic Acid 2.4 mmol/L (0.7-2.1)
[2020-05-31 22:30] VITALS: BP 167/82; PULSE 85; RESP 17; O2SAT 98
[2020-05-31 22:30] LABS: Blood Urea Nitrogen 118 mg/dl (9-20)
[2020-05-31 22:31] LABS: Calcium 6.5 mg/dl (8.4-10.2)
[2020-05-31 22:33] LABS: Troponin I 0.14 ng/ml (0.00-0.034)
[2020-05-31 22:38] LABS: ABG PCO2 15.5 mmhg (35.0-45.0); Allen's Test y; Oxygen 100 %
[2020-05-31 22:47] LABS: NT Pro Brain Natriuretic Pep. 156000 pg/mL (0-125)
[2020-05-31 23:00] VITALS: BP 175/91; PULSE 85; RESP 17; O2SAT 98
--- NOTE | 2020-05-31 23:03 | PC.NURSE ---
Pt states he has not taken his meds or done dialysis in over a month, states he wants dialysis now, but does not want it everyday
--- NOTE | 2020-05-31 23:07 | PC.NURSE ---
calling [facility] for possible transfer
--- NOTE | 2020-05-31 23:23 | PC.NURSE ---
calling [facility] at this time
--- NOTE | 2020-05-31 23:25 | PC.NURSE ---
awaiting for hospitalist to call back.
[2020-05-31 23:28] LABS: Coronavirus 19 IgG Antibody Positive (Negative); Coronavirus 19 IgM Antibody Negative (Negative)
--- NOTE | 2020-05-31 23:28 | PC.NURSE ---
notified of positive IgG
--- NOTE | 2020-05-31 23:29 | PC.NURSE ---
calling [facility] for possible transfer. [facility] [place] have no beds for admission.
[2020-05-31 23:30] VITALS: BP 166/85; PULSE 83; RESP 17; O2SAT 98
--- NOTE | 2020-05-31 23:34 | PC.NURSE ---
on phone with hospitalist at [facility].
[2020-05-31 23:37] LABS: T4 (Thyroxine) 4.2 ug/dl (5.53-11.0)
[2020-05-31 23:41] VITALS: O2SAT 96
--- NOTE | 2020-05-31 23:41 | PC.NURSE ---
pt accepted to [facility] surg by Dr. Doss. spoke with Zeferino EUCEDA
--- NOTE | 2020-05-31 23:44 | PC.NURSE ---
respiratory called to take patient off vapotherm and switched over to 4lpm via nasal cannula
--- NOTE | 2020-06-01 00:06 | PC.NURSE ---
report called to MONTSERRAT Ramesh on [facility]
[2020-06-01 00:07] VITALS: BP 167/84; PULSE 82; RESP 16; TEMP 37.2; O2SAT 96
--- NOTE | 2020-06-01 00:08 | PC.NURSE ---
fredy called for transport
--- NOTE | 2020-06-01 00:26 | PC.NURSE ---
pt had 100ml output. this nurse called MONTSERRAT Ramesh at [facility] to update and will fax UA results if not resulted by transportation
[2020-06-01 00:27] LABS: Microscopic, Urine URINE MICROSCOPIC (MICROSCOPIC)
[2020-06-01 00:28] LABS: Appearance,Urine SL CLOUDY (Clear); Bilirubin,Urine Negative (Negative); Blood, Urine 2+ (Negative); Color,Urine YELLOW (Yellow); Glucose,Urine (UA) 2+ (Negative); Ketones,Urine Negative (Negative); Leukocyte Esterase,Urine Negative (Negative); Nitrate,Urine Negative (Negative); Protein,Urine 2+ (Negative); Specific Gravity, Urine 1.025 (1.005-1.030); Urobilinogen,Urine 0.2 EU/dl (0.2)
[2020-06-01 00:30] VITALS: BP 180/89; PULSE 84; RESP 17; O2SAT 98
[2020-06-01 00:31] LABS: Amorphous Sediment,Urine 2+ /lpf
== END 2020-06-01 00:57 | disposition short-term general hospital (02) ==
PROVIDERS: Emergency Provider Emergency Medicine; PCP Family Medicine
DX: I16.0 Hypertensive urgency (principal); N17.9 Acute kidney failure, unspecified; N18.4 Chronic kidney disease, stage 4 (severe); Z99.2 Dependence on renal dialysis; Z01.84 Encounter for antibody response examination; E03.9 Hypothyroidism, unspecified; D64.9 Anemia, unspecified; I25.2 Old myocardial infarction; E78.5 Hyperlipidemia, unspecified; Z79.899 Other long term (current) drug therapy; F17.210 Nicotine dependence, cigarettes, uncomplicated
CPT/HCPCS: 71045; 80053; 81001; 82803; 83605; 83880; 84436; 84443; 84484; 85025; 86328; 87040; 93005; 96372; 96374; 96375; 99284

== ENCOUNTER 2020-06-15 11:31 | Emergency (ER) | payer OTHER, MEDICARE, SELFPAY ==
--- NOTE | 2020-06-15 | XR_ITS ---
PROCEDURE: XR WRIST LT 2V CLINICAL INDICATION: POST REDUCTION COMPARISON: CR XR WRIST LT 2V from 06/15/2020 FINDINGS: Portable AP and lateral views were obtained with semiopaque cast in place. There has been interval improvement in alignment since the 1st reduction attempt with mild dorsal angulation remaining. IMPRESSION: Interval improvement in the dorsal angulation secondary to repeated reduction Dictated by: Dr. Nabeel Rowland MD 06/15/2020 14:06 Dr. Nabeel Rowland MD in [facility] 06/15/2020 14:06
[2020-06-15 11:31] VITALS: BP 175/105; PULSE 100; RESP 19; TEMP 36.5; O2SAT 100; BMI 22.9
--- NOTE | 2020-06-15 11:32 | XR_ITS ---
PROCEDURE: XR FOREARM LT 2V CLINICAL INDICATION: fall COMPARISON: No exams were available for comparison FINDINGS: Burst fracture distal radius at the diametaphyseal zone with dorsal angulation of the distal fracture fragment. The ulna is intact. The carpal bones appear grossly normal. Inflatable splint is seen. IMPRESSION: Acute transverse partially comminuted angulated fracture distal radius as noted Dictated by: Dr. Nabeel Rowland MD 06/15/2020 13:41 Dr. Nabeel Rowland MD in [facility] 06/15/2020 13:41
--- NOTE | 2020-06-15 11:32 | XR_ITS ---
PROCEDURE: XR WRIST LT MIN 3V CLINICAL INDICATION: fall COMPARISON: No exams were available for comparison FINDINGS: The transverse angulated fracture distal radius at the diametaphyseal zone is again noted and is partially comminuted. The distal ulna is intact. The carpal bones appear intact there is diffuse soft tissue swelling of the distal forearm. There is focal arteriosclerotic calcification of the radial artery. IMPRESSION: Angulated partially comminuted fracture distal radius diametaphyseal zone Dictated by: Dr. Nabeel Rowland MD 06/15/2020 13:43 Dr. Nbaeel Rowland MD in [facility] 06/15/2020 13:43
--- NOTE | 2020-06-15 11:37 | [facility].EDGENADL ---
ED Disposition Clinical Impression: Colles' fracture of left radius Qualifiers: Encounter type: initial encounter Fracture type: closed Qualified Code(s): S52.532A - Colles' fracture of left radius, initial encounter for closed fracture Disposition: Hospice - Home Condition on Discharge: Fair Instructions: Forearm Fracture Additional Instructions: Take Tylenol/ibuprofen as needed for pain, for pain that is unresponsive to these medications take previously prescribed/home oxycodone prescription. Follow-up with orthopedics as an outpatient in clinic. Referrals: Gerry Albarado MD [Primary Care Provider] - Gen Villarreal MD [Staff Physician] - - Critical Care Critical Care Time: No Attestation: On , the high probability of a clinically significant, sudden or life threatening deterioration of the following system(s) required my full and direct attention, intervention and personal management. The time I documented below is in addition to time spent performing reported procedures but includes the following listed in this critical care notation. Medical Decision Making - Medical Records Medical records reviewed: Yes: I reviewed the patient's medical records. - Ernesto Inquiry Pt receiving controlled substance: No Vital Signs: 06/15/20 11:31 Temperature 97.7 F Temperature Source Oral Pulse Rate [Left Radial] 100 H Respiratory Rate 19 Blood Pressure [Right Arm] 175/105 H Blood Pressure Mean [Right Arm] 128 Blood Pressure Source [Right Arm] Automatic Cuff Blood Pressure Position [Right Arm] Sitting 02 Sat by Pulse Oximetry 100 Oxygen Delivery Method Nasal Cannula Oxygen Flow Rate (LPM) 2 Orders (Tests/Meds): ED MEDICATIONS Discontinued Medications Generic Name Dose Route Start Last Admin Trade Name Freq PRN Reason Stop Dose Admin Fentanyl Citrate 25 mcg 06/15/20 12:38 06/15/20 12:39 Fentanyl 250mcg/5ml Vial IV 06/15/20 12:39 25 mcg ONCE ONE Administration Fentanyl Citrate 25 mcg 06/15/20 13:03 06/15/20 13:05 Fentanyl 250mcg/5ml Vial IV 06/15/20 13:04 25 mcg ONCE ONE Administration Oxycodone/Acetaminophen 1 each 06/15/20 11:44 06/15/20 11:45 Oxycodone 10mg W/Apap 325mg Tablet PO 06/15/20 11:45 1 each ONCE ONE Administration ORDERS Category Date Time Status XR forearm LT 2V Stat Exams 06/15/20 11:32 Taken XR wrist LT 2V Routine Exams 06/15/20 Taken XR wrist LT 2V Stat Exams 06/15/20 13:03 Taken XR wrist LT min 3V Stat Exams 06/15/20 11:32 Taken Medical Decision Narrative: 70-year-old male on hospice care at home brought in by EMS for valuation after a fall onto his left arm. Patient hospice/comfort care only so family and patient wish only treatment for left arm injury at this time. Exam significant for deformity of left distal forearm already splinted by EMS. Removed splint and obtained x-rays of left wrist/forearm. X-rays personally reviewed and show displaced acute traumatic left distal radius fracture. Provided oxycodone for pain control. Placed left arm in a short arm/sugar tong splint. Utilized IV lidocaine for hematoma block. Provided patient with IV fentanyl for pain control. See splinting/reduction procedure. Patient tolerated procedure well and pain is well controlled. Post reduction/splinting x-rays obtained and show acceptable reduction. Provided referral for orthopedics as an outpatient. Advised on continued oral pain control regimen at home. 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 General Adult HPI - General Stated complaint: fall, wrist pain Time Seen by Provider: 06/15/20 11:35 Mode of Arrival: EMS Source of Information: Patient, EMS Limitations: No Limitations - History of Present Illness HPI narrative: 70-year-old male currently on hospice care for end-stage renal disease and type 2 diabetes mellitus who presents emergency dep
[2020-06-15 12:45] VITALS: BP 175/93
--- NOTE | 2020-06-15 13:03 | XR_ITS ---
PROCEDURE: XR WRIST LT 2V CLINICAL INDICATION: post reset COMPARISON: CR XR FOREARM LT 2V from 06/15/2020 FINDINGS: A portable cross-table lateral film was obtained and there has been slight interval improvement in the dorsal angulation now measuring approximately 25 degrees where as pre reduction it measured approximately 42 degrees. IMPRESSION: Interval improvement but significant dorsal angulation still remains Dictated by: Dr. Nabeel Rolwand MD 06/15/2020 13:54 Dr. Nabeel Rowland MD in [facility] 06/15/2020 13:54
[2020-06-15 14:08] VITALS: BP 161/98; PULSE 81; RESP 19; TEMP 36.5; O2SAT 97
== END 2020-06-15 14:10 | disposition hospice, home (50) ==
PROVIDERS: Emergency Provider Emergency Medicine; PCP Family Medicine
DX: S52.532A Colles' fracture of left radius, initial encounter for closed fracture (principal); W01.0XXA Fall on same level from slipping, tripping and stumbling without subsequent striking against object, initial encounter; Y92.019 Unspecified place in single-family (private) house as the place of occurrence of the external cause; E11.22 Type 2 diabetes mellitus with diabetic chronic kidney disease; N18.6 End stage renal disease; I10 Essential (primary) hypertension; Z99.2 Dependence on renal dialysis; E03.9 Hypothyroidism, unspecified; I25.2 Old myocardial infarction; E78.5 Hyperlipidemia, unspecified; F33.1 Major depressive disorder, recurrent, moderate; Z79.899 Other long term (current) drug therapy; F17.210 Nicotine dependence, cigarettes, uncomplicated; Z79.4 Long term (current) use of insulin
CPT/HCPCS: 73090; 73100; 73110; 96374; 99282